=== PATIENT | female | born 1975 | race Caucasian/White ===

== ENCOUNTER 2020-06-04 17:39 | Emergency (ER) | payer OTHER, SELFPAY ==
[2020-06-04 17:50] VITALS: BP 133/71; PULSE 98; RESP 18; TEMP 37.2; O2SAT 99; BMI 32.3
--- NOTE | 2020-06-04 19:50 | ED_ITS ---
HPI - Skin/Abscess/Foreign Bdy General Chief complaint: Skin/Abscess/Foreign Body Stated complaint: cyst? Time Seen by Provider: 06/04/20 19:35 Source: patient Mode of arrival: ambulatory Limitations: no limitations History of Present Illness HPI narrative: Patient presents to ED for right axillary boil that is painful. Patient states Fonseca is hard and small. Patient denies any fever, chills, chest pain, breast swelling, nipple discharge, breast redness. Patient states she had similar boil on left axillary in the past that drain on its own Related Data Previous Rx's Medication Instructions Recorded cephalexin 500 mg PO QID 7 Days #28 cap 06/04/20 naproxen 500 mg PO BID PRN #20 tab 06/04/20 Allergies Allergy/AdvReac Type Severity Reaction Status Date / Time No Known Allergies Allergy Verified 06/04/20 17:54 Review of Systems Review of Systems: Yes all other systems are reviewed and are negative Constitutional: Constitutional: Reports as per HPI and Reports no additional constitutional complaints Eyes: Eyes: Reports as per HPI and Reports no additional eye complaints ENT: Reports system reviewed and no additional complaints, except as d ocumented and Reports as per HPI Cardiovascular: Cardiovascular: Reports as per HPI and Reports no additional cardiovascular complaints Respiratory: Respiratory: Reports as per HPI and Reports no additional respiratory complaints Gastrointestinal: Gastrointestinal: Reports as per HPI and Reports no additional gastrointestinal complaints Genitourinary: Genitourinary: Reports no additional female genitourinary complaints and Reports as per HPI Musculoskeletal: Musculoskeletal: Reports no additional musculoskeletal complaints and Reports as per HPI Comments: Right axillary boil Neurologic: Reports system reviewed and no additional complaints, except as documented and Reports as per HPI Psychiatric: Psychiatric: Reports no additional psychiatric complaints and Reports as per HPI [facility] Past Medical History Medical History Fibromyalgia Social History Social History Alcohol intake: never Smoked in Last 30 Days: No Use of substances other than those prescribed or required for medical reasons: No Advance Directives: No Physical Exam Vital Signs: Vital Signs: Last Vital Signs Temp 98.9 F 06/04/20 17:50 Pulse 98 06/04/20 17:50 Resp 18 06/04/20 17:50 BP 133/71 06/04/20 17:50 Pulse Ox 99 02/06/21 17:50 Body Mass Index 32.3 Const: General: cooperative, healthy appearing, comfortable, no acute distress, well developed, alert, awake and Physically active Orientation/cons ciousness: patient oriented x3 HENMT: Head: Yes normal to inspection, Yes No palpable skull fracture present, Yes normocephalic and Yes atraumatic Eyes: General: appearance normal, both eyes and all related structures Neck: Neck: Yes normal visual inspection, Yes full ROM, Yes no lymphadenopathy, Yes no meningeal signs, Yes trachea midline, Yes supple and No tender Chest: Chest palpation & inspection: normal inspection of the chest and normal palpation of entire chest wall Resp: Effort & Inspection: normal respiratory effort and able to speak in complete sentences Auscultation: clear to auscultation bilaterally Cardio: Jugular venous distension: no JVD Heart sounds: S1 normal heart sound present and S2 normal heart sound present GI: Inspection: Yes normal to inspection and No abdominal wall ecchymosis Palpation (GI): Soft to palpation, not firm, nontender, no guarding and not rigid : General: No CVA tenderness and Yes no CVA tenderness Back/Spine/Pelvis: Back: no CVA tenderness, No CVA tenderness and No back tenderness Skin: Other: Positive for right axillary boil that is hard, tender, and nonfluctuant. Abscess not ready to be drained General skin exam: no rashes or lesions noted Neuro: General: patient oriented x3, no meningeal signs and CN's II-XI intact bilaterally Cranial nerves: Yes CN's II-XII intact bilaterally Extrem: General: Yes normal to inspection and Yes full ROM Psych: Appearance: grossly normal, well kempt and not disheveled Course Course Course Narrative: Patient has early right axillary abscess. Reevaluation(s) Reevaluation #1: Patient's right axillary abscess not yet ready to be drained. Patient educated on warm compress 4 times a day on oil. Patient states she cannot take doxycycline due to stomach upset with nausea and vomiting. Patient will be discharged with Keflex only. Time: 19:55 MDM - Skin/Abscess/Foreign Bdy MDM Narrative Medical decision making narrative: Abscess Discharge Plan Discharge Clinical Impression: Abscess of skin or subcutaneous tissue Patient Disposition: Home, Self-Care Instructions: Abscess (ED) Additional Instructions: Return to the ED immediately for increased size of abscess, worsening redness, worsening pain, fever, chills, profuse opening and drainage, or any other c oncerning symptoms. Recommend warm compress 4 times a day for 15 minutes on oil Prescriptions: New cephalexin 500 mg capsule 500 mg PO QID 7 Days Qty: 28 RF: 0 naproxen 500 mg tablet 500 mg PO BID PRN (Reason: pain) Qty: 20 RF: 0 Interventions: ED Discharge Assessment Last Done: 06/04/20 20:21 Discharge Date/Time: 06/04/20 20:24 Print Language: Maltese
== END 2020-06-04 20:24 | disposition home or self-care (01) ==
PROVIDERS: Emergency Provider Internal Medicine
DX: L02.411 Cutaneous abscess of right axilla (principal); Z79.899 Other long term (current) drug therapy
CPT/HCPCS: 99283; 99284

== ENCOUNTER 2021-01-04 17:10 | Emergency (ER) | payer OTHER, SELFPAY ==
[2021-01-04 17:37] VITALS: BP 137/84; PULSE 93; RESP 18; TEMP 37; O2SAT 98; BMI 29.1
--- NOTE | 2021-01-04 19:20 | ED.CHESTPAIN ---
HPI - Chest Pain General Chief Complaint: Chest Pain Stated Complaint: Sore throat/Cough Time Seen by Provider: 01/04/21 19:20 Source: patient Mode of arrival: ambulatory Limitations: no limitations History of Present Illness HPI narrative: Patient post vaccinated with COVID 2 months ago complaining of nasal congestion sore throat for last 24 hours no fever no chills no significant cough or shortness of breath Related Data Previous Rx's Medication Instructions Recorded cephalexin 500 mg capsule 500 mg PO QID 7 Days #28 cap 06/04/20 naproxen 500 mg tablet 500 mg PO BID PRN #20 tab 06/04/20 Allergies Allergy/AdvReac Type Severity Reaction Status Date / Time No Known Allergies Allergy Verified 06/04/20 17:54 Review of Systems Review of Systems: Yes all other systems are reviewed and are negative [facility] Past Medical History Medical History Fibromyalgia Social History Social History Alcohol intake: never Advance Directives: No Advance Directives Information Provided: Yes Physical Exam Vital Signs: Vital Signs: Last Vital Signs Temp 97.8 F 01/04/21 21:12 Pulse 88 01/04/21 21:12 Resp 16 01/04/21 21:12 BP 141/94 H 01/04/21 21:12 Pulse Ox 100 01/04/21 21:12 Body Mass Index 29.1 Appearance: Alert. Oriented X3. No acute distress. ENT: Slight erythema of the posterior pharynx, postnasal drip Oral Mucosa moist Neck: Normal inspection. Neck supple. CVS: Normal heart rate and rhythm. Pulses normal. Respiratory: No respiratory distress. Equal air entry bilateral, no wheezing/rales/rhonchi Abdomen: Soft and nontender. Bowel sounds are present, no mass palpable, no CVA tenderness Skin: Skin warm and dry. Normal skin color. Normal skin turgor. Extremities: No lower extremity edema. No calf tenderness Neuro: Oriented X 3. MDM - Chest Pain Lab Data Attestation: I reviewed the patient's lab results. Labs: Lab Results 01/04/21 01/04/21 Range/Units 19:48 19:48 COVID-19 ([facility]) Negative (Negative) COVID-19 Clin Com See Note S. pyogenes GrpA DIEUDONNE Negative (Negative) Discharge Plan Discharge Clinical Impression: Upper respiratory infection Patient Disposition: Home, Self-Care Instructions: Upper Respiratory Infection (ED) Additional Instructions: rapid strep and COVID is negative Take Claritin for allergies Drink plenty of fluids Prescriptions: No Action cephalexin 500 mg capsule 500 mg PO QID 7 Days Qty: 28 RF: 0 naproxen 500 mg tablet 500 mg PO BID PRN (Reason: pain) Qty: 20 RF: 0 Interventions: ED Discharge Assessment Last Done: 01/04/21 21:26 Discharge Date/Time: 01/04/21 21:27
[2021-01-04 19:53] VITALS: BP 131/93; PULSE 86; RESP 16; TEMP 36.8; O2SAT 98
[2021-01-04 20:07] LABS: IDNOW Serial# 08D9AD1C; Strep A Nucleic Acid Negative (Negative)
[2021-01-04 20:16] LABS: COVID-19 Test Negative (Negative)
[2021-01-04 21:12] VITALS: BP 141/94; PULSE 88; RESP 16; TEMP 36.6; O2SAT 100
== END 2021-01-04 21:27 | disposition home or self-care (01) ==
PROVIDERS: Emergency Provider Internal Medicine; PCP Nurse Practitioner Family
DX: J06.9 Acute upper respiratory infection, unspecified (principal); R07.9 Chest pain, unspecified; Z79.899 Other long term (current) drug therapy; Z20.822 Contact with and (suspected) exposure to COVID-19
CPT/HCPCS: 36415; 87635; 87651; 99283; 99284

== ENCOUNTER 2021-06-20 23:17 | Emergency (ER) | payer OTHER, SELFPAY ==
--- NOTE | ~2021-06-20 | XR_ITS ---
EXAMINATION: XR CHEST CLINICAL INFORMATION: Chest pain COMPARISON: None TECHNIQUE: Frontal view of the chest was obtained. FINDINGS: The lungs are well expanded. There is no focal consolidation, edema, or effusion. No pneumothorax. The cardiomediastinal silhouette is within normal limits. No acute osseous abnormality. XR/XR chest 1V IMPRESSION: Clear lungs.
[2021-06-20 23:33] VITALS: BP 136/91; PULSE 102; RESP 20; TEMP 36.8; O2SAT 98; BMI 32.3
--- NOTE | 2021-06-20 23:36 | ECG_ITS ---
Test Reason : DIZZINESS Blood Pressure : / mmHG Vent. Rate : 103 BPM Atrial Rate : 103 BPM P-R Int : 128 ms QRS Dur : 076 ms QT Int : 356 ms P-R-T Axes : 056 042 047 degrees QTc Int : 466 ms Sinus tachycardia Otherwise normal ECG No previous ECGs available Referred By: Generic ED Physician Electronically Signed By:JORGE NICHOLS
[2021-06-20 23:52] LABS: Basophils Percent Auto 0.4 % (0-2); Eosinophils Absolute Auto 0.4 X10*3/uL (0.0-0.4); Eosinophils Percent Auto 4.8 % (0-4); Hematocrit 36.3 % (37.0-47.0); Imm Gran Abs Auto 0.02 X10*3/uL (0.00-0.03); Imm Gran Pct Auto 0.2 % (0.0-0.4); Lymphocytes Absolute Auto 3.2 X10*3/uL (1.2-4.9); Lymphocytes Percent Auto 35.3 % (20-40); MANUAL DIFF FLAG NO; Mean Corpuscular HGB Conc 33.1 g/dl (31.0-35.0); Mean Corpuscular Hemoglobin 28.4 pg (27.0-33.0); Mean Corpuscular Volume 85.8 fL (80.0-98.0); Monocytes Absolute Auto 0.7 X10*3/uL (0.1-1.2); Monocytes Percent Auto 7.3 % (2-11); Neutrophils Absolute Auto 4.7 x10*3/uL (2.0-8.3); Platelet Count 247 X10*3/uL (160-400); Red Blood Count 4.23 X10*6/uL (4.20-5.50); Red Cell Distribution Width 12.9 % (11.0-16.0)
[2021-06-21 00:11] LABS: COVID-19 Test Negative (Negative); IDNOW Serial# 55D5AD1C
[2021-06-21 00:12] LABS: Anion Gap 10 (12-20); Blood Urea Nitrogen 14 mg/dL (9-16); Calcium 8.9 mg/dL (8.4-10.2); Carbon Dioxide 25 mmol/L (22-29); Chloride 106 mmol/L (96-108); Creatinine Clr Calc Pharmacy 121.6; Estimated Glomerular Filt Rate > 60; Glucose Random 93 mg/dL (60-115); Potassium 3.9 mmol/L (3.3-5.1); Sodium 137 mmol/L (135-145)
[2021-06-21 00:19] LABS: Troponin-I High Sensitivity < 3.5 ng/L (<3.5-17.0)
[2021-06-21 00:54] VITALS: BP 127/79; PULSE 98; RESP 16; TEMP 36.8; O2SAT 100
--- NOTE | 2021-06-21 02:20 | ED_ITS ---
HPI - Chest Pain General Chief Complaint: Chest Pain Stated Complaint: dizziness, nausea Time Seen by Provider: 06/21/21 01:18 Source: patient Mode of arrival: ambulatory History of Present Illness HPI narrative: 46-year-old female presents with multiple medical complaints that she states has been ongoing for over a week and encompass feelings of lightheadedness and describes head pain that comes up over her head into the base the neck and on both sides of her jaw as. Patient states that when she feels lightheaded she also has mild nausea but otherwise denies shortness of breath but reports chest pain and no palpitations. She denies any recent travel, smoking history. Related Data Previous Rx's Medication Instructions Recorded cephalexin 500 mg capsule 500 mg PO QID 7 Days #28 cap 06/04/20 naproxen 500 mg tablet 500 mg PO BID PRN #20 tab 06/04/20 meclizine 12.5 mg tablet 12.5 mg PO TID PRN #7 tab 06/21/21 Allergies Allergy/AdvReac Type Severity Reaction Status Date / Time No Known Allergies Allergy Verified 06/04/20 17:54 Review of Systems Review of Systems: Pertinent positives and negatives as stated in HPI 10 point review of systems is otherwise negative. PMFSH Past Medical History Source: nursing notes reviewed Medical History Fibromyalgia Social History Social History Alcohol intake: never Advance Directives: No Advance Directives Information Provided: No Patient : No Physical Exam Vital Signs: Vital Signs: Last Vital Signs Temp 98.0 F 06/21/21 03:57 Pulse 81 06/21/21 03:57 Resp 16 06/21/21 03:57 BP 119/73 06/21/21 03:57 Pulse Ox 99 06/21/21 03:57 BMI result Body Mass Index 32.3 VITAL SIGNS: Reviewed. GENERAL: Well developed, well nourished, in no acute distress. HEAD: Normocephalic/atraumatic EYES: PERRLA, EOMI intact without pain, no nystagmus EARS: Ext canals without abnormality, TMs non-bulging and non-erythematous NOSE: Nares patent bilateral OROPHARYNX: no oral lesions noted, posterior pharynx clear and non-erythematous without noted tonsillar enlargement/erythema/exudates NECK: Supple, no adenopathy LUNGS: Normal breath sounds. No adventitious sounds or accessory muscle use. SpO2<100> CARDIOVASCULAR: Regular rate and rhythm without noted murmurs, no JVD or lower extremity edema. ABDOMEN: Soft, non-tender, non-distended with bowel sounds. SKIN: Inspection of the skin reveals no rashes NEUROLOGIC: Alert and oriented x 4. Strength and sensation to light touch were grossly intact x 4, no facial asymmetry, no pronator drift, cranial nerves 2-12 are grossly intact, no cerebellar deficits noted Course Course Course Narrative: This is a 46-year-old female with history of fibromyalgia and on review of all investigations there are no acute findings to better explain patient's symptoms other than possible transient lightheadedness that has not affected her ADLs. Patient does not report additional depression and anxiety history. There is no evidence of infection, anemia, metabolic derangements, there are no acute findings on EKG and no evidence to suggest UTI or he . Orthostatics are negative as well as COVID-19 testing. Patient was provided with a combination of Tylenol ibuprofen for headache and given a trial of 12.5 mg of meclizine for her lightheadedness/dizziness. ESR is within normal limits. There are no focal findings, low suspicion for intracranial pathology and possible headache related symptoms. Although patient does not carry a formal diagnosis of migraines she was strongly encouraged to follow-up with her primary care provider and to keep a headache log. On re-evaluation patient has had improvement of her symptoms will be discharged home in stable condition. MDM - Chest Pain Lab Data Result diagrams: 06/20/21 23:44 06/20/21 23:44 Labs: Lab Results 06/20/21 06/20/21 06/20/21 Range/Units 23:42 23:44 23:44 WBC 9.0 (4.8-10.8) X10*3/uL RBC 4.23 (4.20-5.50) X10*6/uL Hgb 12.0 (12.0-16.0) g/dl Hct 36.3 L (37.0-47.0) % MCV 85.8 (80.0-98.0) fL MCH 28.4 (27.0-33.0) pg MCHC 33.1 (31.0-35.0) g/dl RDW 12.9 (11.0-16.0) % Plt Count 247 (160-400) X10*3/uL MPV 10.0 (9.4-12.3) fL Immature Gran % (Auto) 0.2 (0.0-0.4) % Neut % (Auto) 52.0 (45-73) % Lymph % (Auto) 35.3 (20-40) % [place] % (Auto) 7.3 (2-11) % Eos % (Auto) 4.8 H (0-4) % Baso % (Auto) 0.4 (0-2) % Lymph # (Auto) 3.2 (1.2-4.9) X10*3/uL [place] # (Auto) 0.7 (0.1-1.2) X10*3/uL Eos # (Auto) 0.4 (0.0-0.4) X10*3/uL Baso # (Auto) 0.0 (0.0-0.2) X10*3/uL Abs Immat Gran (auto) 0.02 (0.00-0.03) X10*3/uL Absolute Neuts (auto) 4.7 (2.0-8.3) x10*3/uL Absolute Nucleated RBC 0.000 (0.0-0.012) X10*3/uL Nucleated RBC % (auto) 0.0 (0.0-0.2) /100WBC ESR (0-20) MM/HR Sodium 137 (135-145) mmol/L Potassium 3.9 (3.3-5.1) mmol/L Chloride 106 (96-108) mmol/L Carbon Dioxide 25 (22-29) mmol/L Anion Gap 10 L (12-20) BUN 14 (9-16) mg/dL Creatinine 0.67 (0.5-1.4) mg/dL Estim Creat Clear Calc 121.6 Estimated GFR > 60 Random Glucose 93 (60-115) mg/dL Calcium 8.9 (8.4-10.2) mg/dL Total Bilirubin 0.2 (0.0-1.0) mg/dL Direct Bilirubin < 0.2 (0.0-0.5) mg/dL AST 14 (5-31) U/L ALT 16 (0-31) U/L Alkaline Phosphatase 62 (39-117) U/L Troponin I High Sens (<3.5-17.0) ng/L Total Protein 6.9 (6.5-8.0) g/dL Albumin 4.0 (3.5-5.0) g/dL Urine Color Urine Appearance Urine pH (5.0-8.0) Ur Specific [place] (1.005-1.025) Urine Protein (NEG-TRACE) MG/DL Urine Glucose (UA) (NEG) MG/DL Urine Ketones (NEG) MG/DL Urine Blood (NEG) Urine Nitrite (NEG) Ur Leukocyte Esterase (NEG) Urine RBC (0) /HPF Urine WBC (0-4) /HPF Ur Squamous Epith Cells /LPF Urine Bacteria /LPF Urine Test (NEGATIVE) COVID-19 ([facility]) Negative (Negative) COVID-19 Clin Com See Note 06/20/21 06/20/21 06/21/21 Range/Units 23:44 23:44 03:24 WBC (4.8-10.8) X10*3/uL RBC (4.20-5.50) X10*6/uL Hgb (12.0-16.0) g/dl Hct (37.0-47.0) % MCV (80.0-98.0) fL MCH (27.0-33.0) pg MCHC (31.0-35.0) g/dl RDW (11.0-16.0) % Plt Count (160-400) X10*3/uL MPV (9.4-12.3) fL Immature Gran % (Auto) (0.0-0.4) % Neut % (Auto) (45-73) % Lymph % (Auto) (20-40) % [place] % (Auto) (2-11) % Eos % (Auto) (0-4) % Baso % (Auto) (0-2) % Lymph # (Auto) (1.2-4.9) X10*3/uL [place] # (Auto) (0.1-1.2) X10*3/uL Eos # (Auto) (0.0-0.4) X10*3/uL Baso # (Auto) (0.0-0.2) X10*3/uL Abs Immat Gran (auto) (0.00-0.03) X10*3/uL Absolute Neuts (auto) (2.0-8.3) x10*3/uL Absolute Nucleated RBC (0.0-0.012) X10*3/uL Nucleated RBC % (auto) (0.0-0.2) /100WBC ESR 7 (0-20) MM/HR Sodium (135-145) mmol/L Potassium (3.3-5.1) mmol/L Chloride (96-108) mmol/L Carbon Dioxide (22-29) mmol/L Anion Gap (12-20) BUN (9-16) mg/dL Creatinine (0.5-1.4) mg/dL Estim Creat Clear Calc Estimated GFR Random Glucose (60-115) mg/dL Calcium (8.4-10.2) mg/dL Total Bilirubin (0.0-1.0) mg/dL Direct Bilirubin (0.0-0.5) mg/dL AST (5-31) U/L ALT (0-31) U/L Alkaline Phosphatase (39-117) U/L Troponin I High Sens < 3.5 (<3.5-17.0) ng/L Total Protein (6.5-8.0) g/dL Albumin (3.5-5.0) g/dL Urine Color YELLOW Urine Appearance CLEAR Urine pH 6.0 (5.0-8.0) Ur Specific [place] 1.025 (1.005-1.025) Urine Protein NEG (NEG-TRACE) MG/DL Urine Glucose (UA) NEG (NEG) MG/DL Urine Ketones NEG (NEG) MG/DL Urine Blood 1+ H (NEG) Urine Nitrite NEG (NEG) Ur Leukocyte Esterase NEG (NEG) Urine RBC 1-4 (0) /HPF Urine WBC 1-4 (0-4) /HPF Ur Squamous Epith Cells 1+ /LPF Urine Bacteria 1+ /LPF Urine Test (NEGATIVE) COVID-19 ([facility]) (Negative) COVID-19 Clin Com 06/21/21 Range/Units 03:24 WBC (4.8-10.8) X10*3/uL RBC (4.20-5.50) X10*6/uL Hgb (12.0-16.0) g/dl Hct (37.0-47.0) % MCV (80.0-98.0) fL MCH (27.0-33.0) pg MCHC (31.0-35.0) g/dl RDW (11.0-16.0) % Plt Count (160-400) X10*3/uL MPV (9.4-12.3) fL Immature Gran % (Auto) (0.0-0.4) % Neut % (Auto) (45-73) % Lymph % (Auto) (20-40) % [place] % (Auto) (2-11) % Eos % (Auto) (0-4) % Baso % (Auto) (0-2) % Lymph # (Auto) (1.2-4.9) X10*3/uL [place] # (Auto) (0.1-1.2) X10*3/uL Eos # (Auto) (0.0-0.4) X10*3/uL Baso # (Auto) (0.0-0.2) X10*3/uL Abs Immat Gran (auto) (0.00-0.03) X10*3/uL Absolute Neuts (auto) (2.0-8.3) x10*3/uL Absolute Nucleated RBC (0.0-0.012) X10*3/uL Nucleated RBC % (auto) (0.0-0.2) /100WBC ESR (0-20) MM/HR Sodium (135-145) mmol/L Potassium (3.3-5.1) mmol/L Chloride (96-108) mmol/L Carbon Dioxide (22-29) mmol/L Anion Gap (12-20) BUN (9-16) mg/dL Creatinine (0.5-1.4) mg/dL Estim Creat Clear Calc Estimated GFR Random Glucose (60-115) mg/dL Calcium (8.4-10.2) mg/dL Total Bilirubin (0.0-1.0) mg/dL Direct Bilirubin (0.0-0.5) mg/dL AST (5-31) U/L ALT (0-31) U/L Alkaline Phosphatase (39-117) U/L Troponin I High Sens (<3.5-17.0) ng/L Total Protein (6.5-8.0) g/dL Albumin (3.5-5.0) g/dL Urine Color Urine Appearance Urine pH (5.0-8.0) Ur Specific [place] (1.005-1.025) Urine Protein (NEG-TRACE) MG/DL Urine Glucose (UA) (NEG) MG/DL Urine Ketones (NEG) MG/DL Urine Blood (NEG) Urine Nitrite (NEG) Ur Leukocyte Esterase (NEG) Urine RBC (0) /HPF Urine WBC (0-4) /HPF Ur Squamous Epith Cells /LPF Urine Bacteria /LPF Urine Test NEGATIVE (NEGATIVE) COVID-19 ([facility]) (Negative) COVID-19 Clin Com ECG Data ECG #1: Attestation: I personally reviewed and interpreted this ECG as follows: Prior ECG tracings: not available for review Interpretation: Sinus tachycardia, HR-103, no STEMI, NM/QRS/QTC are within normal limits. Discharge Plan Discharge Clinical Impression: Headache, Vertigo Patient Disposition: Home, Self-Care Instructions: Vertigo (ED), Lightheadedness (ED), General Headache (ED) Additional Instructions: 1. Recommend that you follow-up with your primary care provider for further re-e valuation outpatient management. This may be associated with headaches and it would be beneficial for you to keep a headache journal to identify activities or triggers of your headaches. 2. You have been started on a trial of meclizine which can help with dizziness and feelings of vertigo. 3. Tylenol 1000 mg, orally, every 6 hours as needed for pain control. Do not exceed 4000 mg within 24 hours. 4. Ibuprofen 400 mg, orally with milk or food, every 6 hours as needed for pain control. Return to the ER for worsening symptoms. Prescriptions: New meclizine 12.5 mg tablet 12.5 mg PO TID PRN (Reason: dizziness) Qty: 7 0RF No Action cephalexin 500 mg capsule 500 mg PO QID 7 Days Qty: 28 0RF naproxen 500 mg tablet 500 mg PO BID PRN (Reason: pain) Qty: 20 0RF
[2021-06-21 02:28] VITALS: BP 125/81; PULSE 80
[2021-06-21 02:29] VITALS: BP 128/84; BP 131/88; PULSE 82; PULSE 87
[2021-06-21 02:37] LABS: Alanine Aminotransferase 16 U/L (0-31); Alkaline Phosphatase 62 U/L (39-117); Aspartate Amino Transferase 14 U/L (5-31); Bilirubin Direct < 0.2 mg/dL (0.0-0.5); Bilirubin Total 0.2 mg/dL (0.0-1.0); Total Protein 6.9 g/dL (6.5-8.0)
[2021-06-21] MEDS: Acetaminophen 325 MG TABLET 975 MG PO (02:40)
[2021-06-21] MEDS: Ibuprofen 400 MG TABLET PO (02:43)
[2021-06-21 03:07] LABS: Erythrocyte Sedimentation Rate 7 MM/HR (0-20)
[2021-06-21 03:33] LABS: Appearance Urine CLEAR; Color Urine YELLOW; Glucose Urine UA NEG (NEG); Leukocyte Esterase Urine NEG (NEG); Nitrite Urine NEG (NEG); Specific Gravity - Urine 1.025 (1.005-1.025); UACC Culture Trigger NO; Urine Blood 1+ (NEG); Urine Ketones NEG (NEG); Urine Protein NEG (NEG-TRACE)
[2021-06-21 03:37] LABS: UPreg QC Valid YES; Urine Pregnancy NEGATIVE (NEGATIVE)
[2021-06-21 03:39] LABS: Bacteria Urine 1+ /LPF; Squamous Epithelial Cell Urine 1+ /LPF
[2021-06-21 03:57] VITALS: BP 119/73; PULSE 81; RESP 16; TEMP 36.7; O2SAT 99
[2021-06-21] MEDS: Meclizine HCl 12.5 MG TABLET PO (04:04)
== END 2021-06-21 05:14 | disposition home or self-care (01) ==
PROVIDERS: Emergency Provider Student in an Organized Health Care Education/Training Program
DX: R42 Dizziness and giddiness (principal); R51.9 Headache, unspecified; Z20.822 Contact with and (suspected) exposure to COVID-19
CPT/HCPCS: 36415; 71045; 80048; 80076; 81001; 81025; 84484; 85025; 85652; 87635; 93005; 99284

== ENCOUNTER 2022-08-18 17:34 | Emergency (ER) | payer OTHER, SELFPAY ==
[2022-08-18 17:52] VITALS: BP 125/84; PULSE 99; RESP 18; TEMP 36.3; O2SAT 97; BMI 31.1
--- OUTSIDE RECORDS SUMMARY | 2022-08-18 18:25 | XMS_ITS | Continuity of Care Document ---
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 Name Role Phone Douglas SALINAS, Gin Zaragoza Primary Care Physician [phone] Encounter [facility] Date(s): 06/19/21 - 07/19/21 [facility] [address], [place] [address] Allergies, Adverse Reactions, Alerts No Known Medication Allergies Substance Reaction Severity Status Fresh Fruit and Vegetables A ctive Immunizations Given and Recorded Vaccine Date Status Refusal Reason influenza virus vaccine, inactivated 05/23/21 You rded influenza virus vaccine, inactivated 03/08/20 You rded influenza virus vaccine, inactivated 02/16/19 Give n influenza virus vaccine, inactivated 02/26/18 You rded influenza virus vaccine, inactivated 1 01/27/18 Gi suri influenza virus vaccine, inactivated 06/20/17 You rded influenza virus vaccine, inactivated 03/01/15 You rded influenza virus vaccine, inactivated 2 03/18/13 Gi suri influenza virus vaccine, inactivated 3 12/27/11 Gi suri influenza virus vaccine, inactivated 4 12/28/10 Gi suri influenza virus vaccine, inactivated 01/19/10 You rded SARS-CoV-2 (COVID-19) mRNA BNT-162b2 vac 05/23/21 Recorded SARS-CoV-2 (COVID-19) mRNA BNT-162b2 vac 10/28/20 Recorded SARS-CoV-2 (COVID-19) mRNA BNT-162b2 vac 10/05/20 Recorded tetanus/diphtheria/pertussis, acel(Tdap) 03/21/15 Given Influenza Virus Vaccine (oldterm) 5 02/11/07 Given 1Admin Note: at outside clinic -[facility] - per patient 2Result Comment: [03/18/2013] flulaval 3Admin Note: vis given dated 10/29/11 4Admin Note: Pt states rec'd in December at [facility] 5Admin Note: VIS given Medications Blood Pressure Monitor See Instructions, # 1 each, Maintenance, Dx: elevated BP reading without diagnosis of HTN, lightheadedness Check BP once daily, 07/01/20 8:53:00 EST, Supply Start Date: 07/01/20 Status: Ordered busPIRone 15 mg oral tablet 1 tablet = 15 mg, By Mouth, 3 times a day, # 90 tablet, 5 Refills, Maintenance, 11/01/20 14:39:00 EDT, [facility]/pharmacy #[id number], note dose change, 167, cm, 06/16/20 14:00:00 EST, Height, 89.8, kg, 07/01/2017:35:00 EST, Dry Weight Start Date: 11/01/20 Status: Ordered diclofenac 1% topical gel See Instructions, APPLY TO AFFECTED AREA 4 TIMES A DAY, # 100 Gm, 0 Refills, [facility] STORE [id number], 25, APPLY TO AFFECTED AREA 4 TIMES A DAY, 167, cm, 05/10/21 14:43:00 EST, Height, 89.8, kg, 07/02/19 18:35:00 EST, Dry Weight Start Date: 05/28/21 Status: Ordered TENS machine TENS machine, See Instructions, # 1 each, Refills 0, Tot. Refills 0, Maintenance, Dx: Fibromyalgia Use daily for muscle pains and cramps, 06/12/21 14:11:00 EST, Supply Start Date: 06/12/21 Status: Ordered tiZANidine 2 mg oral tablet 2 mg, 1, tablet, By Mouth, 2 times a day, FOR MUSCLE PAIN AND SPASM, # 14 tablet, Refills 0, Tot. Refills 0, Maintenance, 06/12/21 14:13:00 EST, Route to Pharmacy Electronically, [facility]/pharmacy #[id number], Partial fill upon patient request if the prescriptio... Start Date: 06/12/21 Stop Date: 06/19/21 Status: Ordered venlafaxine 100 mg oral tablet 1 tablet = 100 mg, By Mouth, 2 times a day, # 60 tablet, 5 Refills, Maintenance, 06/12/21 13:55:00 EST, Tablet, [facility]/pharmacy #[id number], Partial fill upon patient request if the prescription is for a schedule II opioid drug., 167, cm, 06/12/21 13:38:00 EST... 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 Sex
--- OUTSIDE RECORDS SUMMARY | 2022-08-18 18:25 | XMS_ITS | Continuity of Care Document ---
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 Name Role Phone Douglas SALINAS, Gin Zaragoza Primary Care Physician [phone] Encounter [facility] Date(s): 06/22/21 - 07/26/21 [facility] [address] [place] [id number] Attending Physician: Douglas SALINAS, Gin Zaragoza Admitting Physician: Douglas SALINAS, Gin Zaragoza Allergies, Adverse Reactions, Alerts No Known Medication [...] 02/11/07 Given 1Admin Note: at outside clinic -[facility] - per patient 2Result Comment: [03/18/2013] flulaval 3Admin Note: vis given dated 10/29/11 4Admin Note: Pt states rec'd in December at [facility] 5Admin Note: VIS given Medications Blood Pressure Monitor See Instructions, # 1 each, Maintenance, Dx: elevated BP reading without diagnosis of HTN, lightheadedness Check BP once daily, 07/01/20 8:53:00 EST, Supply Start Date: 07/01/20 Status: Ordered busPIRone 15 mg oral tablet 1 tablet = 15 mg, By Mouth, 3 times a day, # 90 tablet, 5 Refills, Maintenance, 11/01/20 14:39:00 EDT, [facility]/pharmacy #[id number], note dose change, 167, cm, 06/16/20 14:00:00 EST, Height, 89.8, kg, 07/01/2017:35:00 EST, Dry Weight Start Date: 11/01/20 Status: Ordered diclofenac 1% topical gel See Instructions, APPLY TO AFFECTED AREA 4 TIMES A DAY, # 100 Gm, 0 Refills, [facility] ST[id number], 25, APPLY TO AFFECTED AREA 4 TIMES [...] 06/12/21 14:13:00 EST, Route to Pharmacy Electronically, [facility]/pharmacy #[id number], Partial fill upon patient request if the prescriptio... Start Date: 06/12/21 Stop Date: 06/19/21 Status: Ordered venlafaxine 100 mg oral tablet 1 tablet = 100 mg, By Mouth, 2 times a day, # 60 tablet, 5 Refills, Maintenance, 06/12/21 13:55:00 EST, Tablet, [facility]/pharmacy #[id number], Partial fill upon patient request if the prescription is for a schedule II opioid drug., 167, cm, 06/12/21 13:38:00 EST... Start Date: 06/12/21 Status: Ordered Problem List Condition Effective Dates Status Health Status Inform ant Allergy disorder(Confirmed) Active Anal skin tag(Confirmed) Active Anxiety and depression(Confirmed) Active Constipation(Confirmed) Active [...]
--- OUTSIDE RECORDS SUMMARY | 2022-08-18 18:25 | XMS_ITS | Continuity of Care Document ---
Author Name Unknown Organization [facility] ter Address [address] [place] [address]- Care Team Providers Care Manuscript Reader Name Role Phone Douglas SALINAS, Gin Zaragoza Primary Care Physician [phone] Encounter [facility] R [id number] Date(s): 01/01/22 - 02/10/[address] [address]- Attending Physician: Douglas SALINAS, Gin Zaragoza Admitting Physician: Douglas SALINAS, Gin Zaragoza Referring Physician: Douglas SALINAS, Gin Zaragoza Allergies, Adverse [...] mRNA BNT-162b2 vac 10/05/20 Recorded tetanus/diphtheria/pertussis, acel(Tdap) 11/23/15 Given Influenza Virus Vaccine (oldterm) 5 02/11/07 Given 1Admin Note: at outside clinic -[facility] - per patient 2Result Comment: [03/18/2013] flulaval 3Admin Note: vis given dated 10/29/11 4Admin Note: Pt states rec'd in December at [facility] 5Admin Note: VIS given Medications Blood Pressure Monitor See Instructions, # 1 each, Maintenance, Dx: elevated BP reading without diagnosis of HTN, lightheadedness Check BP once daily, 07/01/20 8:53:00 EST, Supply Start Date: 07/01/20 Status: Ordered busPIRone 15 mg oral tablet 1 tablet = 15 mg, By Mouth, 3 times a day, # 90 tablet, 5 Refills, Maintenance, 09/06/21 20:40:00 EDT, [facility]/pharmacy #[id number], note dose change, 167, cm, 07/24/21 15:14:00 EDT, Height Start Date: 09/06/21 Status: Ordered clindamycin 1% topical solution 1 application, Topically, 2 times a day, # 60 mL, 0 Refills, Maintenance, 11/23/21 16:41:00 EDT, Solution, [id number], Partial fill upon patient request if the prescription is for a schedule II opioid drug., 1 application Topically 2 times a d... Start Date: 11/23/21 Status: Ordered diclofenac 1% topical gel See Instructions, APPLY TO AFFECTED AREA 4 TIMES A DAY, # 100 Gm, 0 Refills, [id number], 25, APPLY TO AFFECTED AREA 4 TIMES A DAY, 167, cm, 05/10/21 14:43:00 EST, Height, 89.8, kg, 07/02/19 18:35:00 EST, Dry Weight Start Date: 05/28/21 Status: Ordered ibuprofen 800 mg oral tablet See Instructions, TAKE 1 TABLET BY MOUTH 3 TIMES A DAY TRY TO LIMIT TO 6 TABS PER WEEK, # 90 tablet, Refills 1, Instructions Replace Required Details, Route to Pharmacy Electronically, [id number], 167, cm, 09/18/21 9:00:00 EDT, Height Start Date: 10/04/21 Status: Ordered meclizine 12.5 mg oral tablet 1 tablet = 12.5 mg, By Mouth, 3 times a day, TAKE 1 TABLET BY MOUTH THREE TIMES A DAY NEEDED FORDIZZINESS, # 40 tablet, 1 Refills, 08/24/21 14:23:00 EDT, [facility]/pharmacy #[id number], 167, cm, 07/24/21 15:14:00 EDT, Height Start Date: 08/24/21 Status: Ordered TENS machine TENS machine, See [...] 06/12/21 14:13:00 EST, Route to Pharmacy Electronically, [facility]/pharmacy #[id number], Partial fill upon patient request if the prescriptio... Start Date: 06/12/21 Stop Date: 06/19/21 Status: Ordered venlafaxine 100 mg oral tablet 1 tablet, By Mouth, 2 times a day, # 60 tablet, 2 Refills, [facility] STORE [id number], 167, cm, 11/23/21 16:00:00 EDT, Height Start Date: 12/04/21 Status: Ordered Problem List Condition Confirmation Course Effective Dates Status [facility] Informant Allergy disorder Confirmed Active Anal skin tag Confirmed Active Anxiety and depression Confirmed Active Constipation Confirmed Active Fibromyalgia Confirmed Active Fracture of orbital floor, blow-out, closed 1 Confirmed Active Hemorrhoids Confirmed Active 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 Sex Patient Care team information Personnel Name: Gin Cole NP Address: Address: [address] [place] [address]
--- OUTSIDE RECORDS SUMMARY | 2022-08-18 18:25 | XMS_ITS | Continuity of Care Document ---
Author Name Unknown Organization [facility] Address Unknown Care Team Providers Care Post Graduate Intern Name Role Phone Douglas SALINAS, Gin Zaragoza Primary Care Physician Encounter [facility] Date(s): 07/24/21 - 07/31/21 [facility] Encounter Diagnosis Anal skin tag(Discharge Diagnosis) - 07/24/21 Attending Physician: Yanet Estevez MD Referring Physician: Gin Cole NP Allergies, Adverse Reactions, Alerts No Known Medication [...] influenza virus vaccine, inactivated 2 03/18/13 Gi suir influenza virus vaccine, inactivated 3 12/27/11 Gi suri influenza virus vaccine, inactivated 4 12/28/10 Gi suri influenza virus vaccine, inactivated 01/19/10 You rded SARS-CoV-2 (COVID-19) mRNA BNT-162b2 vac 05/23/21 Recorded SARS-CoV-2 (COVID-19) mRNA BNT-162b2 vac 10/28/20 Recorded SARS-CoV-2 (COVID-19) mRNA BNT-162b2 vac 10/05/20 Recorded tetanus/diphtheria/pertussis, acel(Tdap) 03/21/15 Given Influenza Virus Vaccine (oldterm) 5 02/11/07 Given 1Admin Note: at outside clinic -[facility] - per patient 2Result Comment: [03/18/2013] flulaval 3Admin Note: vis given dated 10/29/11 4Admin Note: Pt states rec'd in December at [facility] 5Admin Note: VIS given Medications Blood Pressure Monitor See Instructions, # 1 each, Maintenance, Dx: elevated BP reading without diagnosis of HTN, lightheadedness Check BP once daily, 07/01/20 8:53:00 EST, Supply Start Date: 07/01/20 Status: Ordered busPIRone 15 mg oral tablet 1 tablet = 15 mg, By Mouth, 3 times a day, # 90 tablet, 5 Refills, Maintenance, 11/01/20 14:39:00 EDT, [facility]/pharmacy #[id number], note dose change, 167, cm, 06/16/20 14:00:00 EST, Height, 89.8, kg, 07/01/2017:35:00 EST, Dry Weight Start Date: 11/01/20 Status: Ordered diclofenac 1% topical gel See Instructions, APPLY TO AFFECTED AREA 4 TIMES A DAY, # 100 Gm, 0 Refills, [facility] STORE [id number], 25, APPLY TO AFFECTED AREA 4 TIMES [...] 06/12/21 14:13:00 EST, Route to Pharmacy Electronically, [facility]/pharmacy #[id number], Partial fill upon patient request if the prescriptio... Start Date: 06/12/21 Stop Date: 06/19/21 Status: Ordered venlafaxine 100 mg oral tablet 1 tablet = 100 mg, By Mouth, 2 times a day, # 60 tablet, 5 Refills, Maintenance, 06/12/21 13:55:00 EST, Tablet, [facility]/pharmacy #[id number], Partial fill upon patient request if the [...] Active Vitamin D deficiency(Confirmed) Active 1Right side Diagnosis Diagnosis Type Effective Dates Health Status Cl inical Service Informant Anal skin tag Discharge Diagnosis 07/24/21 Vital Signs Most recent to oldest [Reference Range]: 1 Height 167 cm (07/24/21 3:14 PM) Weight 92.2 kg (07/24/21 3:14 PM) Pulse Rate [55-90 bpm] 120 bpm *H* (07/24/21 3:14 PM) Body Mass Index [18.5-24.99] 33.06 *>HHI* (07/24/21 3:14 PM) Blood Pressure [90-138/55-84 mm Hg] 127/ 71mm Hg (07/24/21 3:14 PM) Temperature [96.8-100.4 DegF] 96.0 DegF *L* (07/24/21 3:14 PM) Blood pressure sites Arm, right (07/24/21 3:14 PM) Temperature Route Temporal (07/24/21 3:14 PM) Social History Social History Type Response Tobacco Other: PT STATES BASSAM T 2015. Sex
--- OUTSIDE RECORDS SUMMARY | 2022-08-18 18:25 | XMS_ITS | Continuity of Care Document ---
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 Name Role Phone Douglas SALINAS, Gin Zaragoza Primary Care Physician Encounter [facility] Date(s): 07/29/20 - 08/28/20 [facility] [address] [place] [address]- Attending Physician: Admtr, Ar8 Allergies, Adverse Reactions, Alerts No Known Medication Allergies Substance Reaction Severity Status Fresh Fruit and Vegetables A ctive Immunizations Given and Recorded Vaccine Date Status Refusal Reason influenza virus vaccine, inactivated 02/16/19 Give n influenza virus vaccine, inactivated 1 01/27/18 Gi suri influenza virus vaccine, inactivated 2 03/18/13 Gi suri influenza virus vaccine, inactivated 3 12/27/11 Gi suri influenza virus vaccine, inactivated 4 12/28/10 Gi suri tetanus/diphtheria/pertussis, acel(Tdap) 03/21/15 Given Influenza Virus Vaccine (oldterm) 5 02/11/07 Given 1Admin Note: at outside clinic -[facility] - per patient 2Result Comment: [03/18/2013] flulaval 3Admin Note: vis given dated 10/29/11 4Admin Note: Pt states rec'd in December at [facility] 5Admin Note: VIS given Medications Blood Pressure Monitor See Instructions, # 1 each, Maintenance, Dx: elevated BP reading without diagnosis of HTN, lightheadedness Check BP once daily, 07/01/20 8:53:00 EST, Supply Start Date: 07/01/20 Status: Ordered busPIRone 15 mg oral tablet 1 tablet = 15 mg, By Mouth, 3 times a day, # 90 tablet, 5 Refills, Maintenance, 10/23/19 14:34:00 EDT, [facility]/pharmacy #[id number], note dose change, 167, cm, 10/23/19 13:35:00 EDT, Height, 89.8, kg, 07/01/2017:35:00 EST, Dry Weight Start Date: 10/23/19 Status: Ordered capsaicin 0.025% topical cream 1 application, Topically, 2 times a day, # 45 Gm, 5 Refills, Maintenance, 10/23/19 14:12:00 EDT, Cream, [facility]/pharmacy #[id number], 1 application Topically 2 times a day, 167, cm, 10/23/19 13:35:00 EDT, Height, 89.8, kg, 07/02/19 18:35:00 EST, Dry Weight Start Date: 10/23/19 Status: Ordered clindamycin 1% topical solution 1 application, Topically, 2 times a day, for axillary, # 60 mL, 5 Refills, Maintenance, 06/16/20 14:36:00 EST, Solution, [facility]/pharmacy #[id number], Partial fill upon patient request if the prescription is for a schedule II opioid drug., 1 application Topical... Start Date: 06/16/20 Stop Date: 09/08/20 Status: Ordered ibuprofen 800 mg oral tablet 800 mg, 1, tablet, By Mouth, 3 times a day, try to limit to 6 tabs per week, # 90 tablet, Refills 0, Tot. Refills 0, Maintenance, 06/13/20 15:13:00 EST, Route to Pharmacy Electronically, [facility]/pharmacy#[id number], 167, cm, 10/23/19 13:35:00 EDT, Height, 89.8... Start Date: 06/13/20 Status: Ordered Lac-Hydrin 12% cream 1 application, Topically, 2 times a day, # 385 Gm, 11 Refills, Maintenance, 06/09/19 9:18:00 EST, Cream, [facility]/pharmacy #[id number], 1 application Topically 2 times a day, 167, cm, 04/16/19 15:34:00 EST, Height Start Date: 06/09/19 Status: Ordered omeprazole 20 mg oral enteric coated capsule 1 capsule = 20 mg, By Mouth, 2 times a day, # 60 capsule, 0 Refills, Maintenance, 10/23/19 14:17:00EDT, [facility]/pharmacy #[id number], 167, cm, 10/23/19 13:35:00 EDT, Height, 89.8, kg, 07/02/19 18:35:00 EST, Dry Weight Start Date: 10/23/19 Status: Ordered sling for R shoulder sling for R shoulder, See Instructions, # 1 each, Refills 0, Tot. Refills 0, Maintenance, tear of paraspinous muscle greater tuberosity nondisplaced fx Greater tuberosity of humerus fracture (S42.253A), 12/28/19 16:17:00 EDT, Supply Start Date: 12/28/19 Status: Ordered tiZANidine 2 mg oral tablet 2 mg, 1, tablet, By Mouth, 2 times a day, for muscle pains, # 60 tablet, Refills 0, Tot. Refills 0,Maintenance, 11/27/19 13:14:00 EDT, Route to Pharmacy Electronically, [facility]/pharmacy #[id number], 167, cm, 10/23/19 13:35:00 EDT, Height, 89.8, kg, 07/02/19 18... Start Date: 11/27/19 Status: Ordered topiramate 50 mg oral tablet 1 tablet = 50 mg, By Mouth, Daily at bedtime, # 30 tablet, 2 Refills, Maintenance, 10/12/19 10:13:00 EDT, [facility]/pharmacy #[id number], dose increase 10/12/19, 167, cm, 07/02/19 18:35:00 EST, Height, 89.8, kg, 07/02/19 18:35:00 EST, Dry Weight Start Date: 10/12/19 Status: Ordered Tylenol Extra Strength 500 mg oral tablet 2 tablet = 1,000 mg, By Mouth, 3 times a day, PRN for pain, not to exceed 3000 mg/day, # 100 tablet, 2 Refills, Maintenance, 11/05/19 14:33:00 EDT, Tablet, [facility]/pharmacy #[id number], 167, cm, 10/23/19 13:35:00 EDT, Height, 89.8, kg, 07/02/19 18:35:00 EST, DrEric.. Start Date: 11/05/19 Status: Ordered venlafaxine 100 mg oral tablet 1 tablet = 100 mg, By Mouth, 2 times a day, # 60 tablet, 5 Refills, Maintenance, 06/14/20 11:04:00 EST, Tablet, [facility]/pharmacy #[id number], Partial fill upon patient request if the prescription is for a schedule II opioid drug., 167, cm, 10/23/19 13:35:00 EDT... Start Date: 06/14/20 Status: Ordered venlafaxine 100 mg oral tablet TAKE 1 TABLET BY MOUTH TWICE A DAY Start Date: 11/27/19 Status: Ordered Vitamin D3 2000 intl units oral capsule 1 capsule = 2,000 International_Units, By Mouth, Daily, # 30 capsule, 5 Refills, Maintenance, 09/17/19 14:31:00 EDT, [facility]/pharmacy #[id number], 167, cm, 07/02/19 18:35:00 EST, Height, 89.8, kg, 07/02/19 18:35:00 EST, Dry Weight Start Date: 09/17/19 Status: Ordered Problem List Condition Effective Dates Status Health Status Inform ant Allergy disorder(Confirmed) Active Anxiety and depression(Confirmed) Active Constipation(Confirmed) Active Fibromyalgia(Confirmed) Active Fracture of orbital floor, b low-out, closed(Confirmed) 1 Active Hemorrhoids(Confirmed) Active Insomnia disorder related to another mental disorder(Confirmed) Active OREN (obstructive sleep apnea)(Confirmed) 05/2016 Active Vitamin D deficiency(Confirmed) Active 1Right side Social History Social History Type Response Tobacco Other: PT STATES BASSAM T 2015. Sex
--- OUTSIDE RECORDS SUMMARY | 2022-08-18 18:25 | XMS_ITS | Continuity of Care Document ---
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 Name Role Phone Douglas SALINAS, Gin Zaragoza Primary Care Physician Encounter [facility] Date(s): 02/02/20 - 03/03/20 [facility] [address] [place] [id number]- Allergies, Adverse Reactions, Alerts No Known Medication [...] 02/11/07 Given [facility] 2Result Comment: [03/18/2013] flulaval 3Admin Note: vis given dated 10/29/11 4Admin Note: Pt states rec'd in December at [facility] 5Admin Note: VIS given Medications busPIRone 15 mg oral tablet 1 tablet = 15 mg, By Mouth, 3 times a day, # 90 tablet, 5 Refills, Maintenance, 10/23/19 14:34:00 EDT, [facility]/pharmacy #[id number], note dose change, 167, cm, 10/23/19 13:35:00 EDT, Height, 89.8, kg, 07/01/2017:35:00 EST, Dry Weight Start Date: 10/23/19 Status: Ordered capsaicin 0.025% topical cream 1 application, Topically, 2 times a day, # 45 Gm, 5 Refills, Maintenance, 10/23/19 14:12:00 EDT, Cream, [facility]/pharmacy #[id number], 1 application Topically 2 times a day, 167, cm, 10/23/19 13:35:00 EDT, Height, 89.8, kg, 07/02/19 18:35:00 EST, Dry Weight Start Date: 10/23/19 Status: Ordered ibuprofen 800 mg oral tablet 800 mg, 1, tablet, By Mouth, 3 times a day, try to limit to 6 tabs per week, # 90 tablet, Refills 1, Tot. Refills 1, Maintenance, 10/23/19 14:15:00 EDT, Route to Pharmacy Electronically, [facility]/pharmacy#[id number], 167, cm, 10/23/19 13:35:00 EDT, Height, 89.8... Start Date: 10/23/19 Status: Ordered Lac-Hydrin 12% cream 1 application, Topically, 2 times a day, # 385 Gm, 11 Refills, Maintenance, 06/09/19 9:18:00 EST, Cream, [facility]/pharmacy #[id number], 1 application Topically 2 times a day, 167, cm, 04/16/19 15:34:00 EST, Height Start Date: 06/09/19 Status: Ordered omeprazole 20 mg oral enteric coated capsule 1 capsule = 20 mg, By Mouth, 2 times a day, # 60 capsule, 0 Refills, Maintenance, 10/23/19 14:17:00EDT, [facility]/pharmacy #[id number], 167, cm, 10/23/19 13:35:00 EDT, Height, [...] 11/27/19 13:14:00 EDT, [id number], cm, 10/23/19 13:35:00 EDT, Height, 89.8, kg, 07/02/19 18... Start Date: 11/27/19 Status: Ordered topiramate 50 mg oral tablet 1 tablet = 50 mg, By Mouth, Daily at bedtime, # 30 tablet, 2 Refills, Maintenance, 10/12/19 10:13:00 EDT, [facility]/pharmacy #[id number], dose increase 10/12/19, 167, cm, 07/02/19 18:35:00 EST, Height, 89.8, kg, 07/02/19 18:35:00 EST, Dry Weight Start Date: 10/12/19 Status: Ordered Tylenol Extra Strength 500 mg oral tablet 2 tablet = 1,000 mg, By Mouth, 3 times a day, PRN for pain, not to exceed 3000 mg/day, # 100 tablet, 2 Refills, Maintenance, 11/05/19 14:33:00 EDT, Tablet, [facility]/pharmacy #[id number], 167, cm, 10/23/19 13:35:00 EDT, Height, 89.8, kg, 07/02/19 18:35:00 EST, Dr... Start Date: 11/05/19 Status: Ordered venlafaxine 100 mg oral tablet TAKE 1 TABLET BY MOUTH TWICE A DAY Start Date: 11/27/19 Status: Ordered Vitamin D3 2000 intl units oral capsule 1 capsule = 2,000 International_Units, By Mouth, Daily, # 30 capsule, 5 Refills, Maintenance, 09/17/19 14:31:00 EDT, [facility]/pharmacy #[id number], 167, cm, 07/02/19 18:35:00 EST, Height, [...]
--- OUTSIDE RECORDS SUMMARY | 2022-08-18 18:25 | XMS_ITS | Continuity of Care Document ---
Author Name Unknown Organization [facility] Address [address] [place] [address]- Care Team Providers Care Consulting Analyst Name Role Phone Douglas SALINAS, Gin Zaragoza Primary Care Physician Encounter [facility] Date(s): 09/17/19 - 09/24/19 [facility] [address] [place] [address]- [facility] Encounter Diagnosis Fibromyalgia(Discharge Diagnosis) - 09/17/19 Anxiety and depression(Discharge Diagnosis) - 09/17/19 Attending Physician: Douglas SALINAS, Gin Zaragoza Allergies, Adverse [...] 02/11/07 Given 1Admin Note: at outside clinic -[facility] - per patient 2Result Comment: [03/18/2013] flulaval 3Admin Note: vis given dated 10/29/11 4Admin Note: Pt states rec'd in December at [facility] 5Admin Note: VIS given Medications busPIRone 15 mg oral tablet 1 tablet = 15 mg, By Mouth, 3 times a day, # 90 tablet, 5 Refills, Maintenance, 03/27/19 8:49:38 EST, note dose change Start Date: 03/27/19 Status: Ordered capsaicin 0.025% topical cream 1 application, Topically, 2 times a day, # 45 Gm, 5 Refills, Maintenance, 06/09/19 9:17:00 EST, Cream, [facility]/pharmacy #[id number], 1 application Topically 2 times a day, 167, cm, 04/16/19 15:34:00 EST, Height Start Date: 06/09/19 Status: Ordered Lac-Hydrin 12% cream 1 application, Topically, 2 times a day, # 385 Gm, 11 Refills, Maintenance, 06/09/19 9:18:00 EST, Cream, [facility]/pharmacy #[id number], 1 application Topically 2 times a day, 167, cm, 04/16/19 15:34:00 EST, Height Start Date: 06/09/19 Status: Ordered promethazine 25 mg oral tablet 1 tablet = 25 mg, By Mouth, Every 6 hours, PRN as needed for nausea/vomiting, # 60 tablet, 1 Refills, Maintenance, 03/05/19 18:32:40 EST Start Date: 03/05/19 Status: Ordered topiramate 50 mg oral tablet 1 tablet = 50 mg, By Mouth, Daily at bedtime, # 30 tablet, 2 Refills, Maintenance, 09/17/19 14:28:00 EDT, [facility]/pharmacy #[id number], 167, cm, 07/02/19 18:35:00 EST, Height, 89.8, kg, 07/02/19 18:35:00 EST, Dry Weight Start Date: 09/17/19 Status: Ordered Tylenol Extra Strength 500 mg oral tablet 2 tablet = 1,000 mg, By Mouth, 3 times a day, PRN for pain, not to exceed 3000 mg/day, # 100 tablet, 2 Refills, Maintenance, 06/25/19 8:35:00 EST, Tablet, [id number], 167, cm, 06/09/19 9:20:00 EST, Height Start Date: 06/25/19 Status: Ordered venlafaxine 100 mg oral tablet 1 tablet = 100 mg, By Mouth, 2 times a day, # 180 tablet, 3 Refills, Soft Stop, 06/09/19 9:18:00 EST, [id number], 167, cm, 04/16/19 15:34:00 EST, Height Start Date: 06/09/19 Status: Ordered Vitamin D3 2000 intl units oral capsule 1 capsule = 2,000 International_Units, By Mouth, Daily, # 30 capsule, 5 Refills, Maintenance, 09/17/19 14:31:00 EDT, [facility]/pharmacy #[id number], 167, cm, 07/02/19 18:35:00 EST, Height, 89.8, kg, 07/02/19 18:35:00 EST, Dry Weight Start Date: 09/17/19 Status: Ordered Voltaren 1% topical gel 1 application, Topically, 4 times a day, not to exceed 32 grams/day, # 100 Gm, 11 Refills, Maintenance, 06/09/19 9:18:00 EST, Gel, [id number], 1 application Topically 4 times a day,Instr:not to exceed 32 grams/day, 167, cm, 04/16/19 15:34:00 E... Start Date: 06/09/19 Status: Ordered Problem List Condition Effective Dates Status Health Status Inform ant Allergy disorder(Confirmed) Active Anxiety and depression(Confirmed) Active Constipation(Confirmed) Active Fibromyalgia(Confirmed) Active Fracture of orbital floor, b low-out, closed(Confirmed) 1 Active Hemorrhoids(Confirmed) Active Insomnia disorder related to another mental disorder(Confirmed) Active OREN (obstructive sleep apnea)(Confirmed) 05/2016 Active Vitamin D deficiency(Confirmed) Active 1Right side Diagnosis Diagnosis Type Effective Dates Health Status Clinical Service Informant Fibromyalgia Discharge Diagnosis 09/17/19 Anxiety and depression Discharge Diagnosis 09/17/19 Social History Social History Type Response Tobacco Other: PT STATES BASSAM T 2014. Sex
--- OUTSIDE RECORDS SUMMARY | 2022-08-18 18:25 | XMS_ITS | Continuity of Care Document ---
Author Name Unknown Organization [facility] Address [address] [place] [address]- Care Team Providers Care Veneer Sample Maker Name Role Phone Douglas SALINAS, Gin Zaragoza Primary Care Physician [facility] - 11/23/21 [facility] [address], [place] [address] Allergies, Adverse Reactions, Alerts No Known [...] 02/11/07 Given 1Admin Note: at outside clinic -[facility] - per patient 2Result Comment: [03/18/2013] flulaval 3Admin Note: vis given dated 10/29/11 4Admin Note: Pt states rec'd in December at [facility] 5Admin Note: VIS given Medications Blood Pressure Monitor See Instructions, # 1 each, Maintenance, Dx: elevated BP reading without diagnosis of HTN, lightheadedness Check BP once daily, 07/01/20 8:53:00 EST, Supply Start Date: 07/01/20 Status: Ordered busPIRone 15 mg oral tablet 1 tablet = 15 mg, By Mouth, 3 times a day, # 90 tablet, 5 Refills, Maintenance, 09/06/21 20:40:00 EDT, [facility]/pharmacy #[id number], note dose change, 167, cm, 07/24/21 15:14:00 EDT, Height Start Date: 09/06/21 Status: Ordered clindamycin 1% topical solution 1 application, Topically, 2 times a day, # 60 mL, 0 Refills, Maintenance, 11/23/21 16:41:00 EDT, Solution, [facility]/pharmacy #[id number], Partial fill upon patient request if the prescription is for a schedule II opioid drug., 1 application Topically 2 times a d... Start Date: 11/23/21 Status: Ordered diclofenac 1% topical gel See Instructions, APPLY TO AFFECTED AREA 4 TIMES A DAY, # 100 Gm, 0 Refills, [id number], 25, APPLY TO AFFECTED AREA 4 TIMES [...] Replace Required Details, Route to Pharmacy Electronically, [id number], 167, cm, 09/18/21 9:00:00 EDT, Height Start Date: 10/04/21 Status: Ordered meclizine 12.5 mg oral tablet 1 tablet = 12.5 mg, By Mouth, 3 times a day, TAKE 1 TABLET BY MOUTH THREE TIMES A DAY NEEDED FORDIZZINESS, # 40 tablet, 1 Refills, 08/24/21 14:23:00 EDT, [facility]/pharmacy #[id number], 167, cm, 07/24/21 15:14:00 EDT, Height [...] 06/12/21 14:13:00 EST, Route to Pharmacy Electronically, [facility]/pharmacy #[id number], Partial fill upon patient request if the prescriptio... Start Date: 06/12/21 Stop Date: 06/19/21 Status: Ordered venlafaxine 100 mg oral tablet 1 tablet = 100 mg, By Mouth, 2 times a day, # 60 tablet, 5 Refills, Maintenance, 06/12/21 13:55:00 EST, Tablet, [facility]/pharmacy #[id number], Partial fill upon patient request if [...]
--- OUTSIDE RECORDS SUMMARY | 2022-08-18 18:25 | XMS_ITS | Continuity of Care Document ---
Author Name Unknown Organization [facility] Address [address] [place] [address]- Care Team Providers Care Senior Behavioral Scientist Name Role Phone Douglas SALINAS, Gin Zaragoza Primary Care Physician [facility] Date[facility]s): 07/21/19 - 07/31/19 [facility] [address] [place] [address]- [facility] Attending Physician: Admtr, Majo Allergies, Adverse Reactions, Alerts No Known Medication [...] 02/11/07 Given 1Admin Note: at outside clinic -[facility] - per patient 2Result Comment: [03/18/2013] flulaval 3Admin Note: vis given dated 10/29/11 4Admin Note: Pt states rec'd in December at [facility] 5Admin Note: VIS given Medications busPIRone 15 mg oral tablet 1 tablet = 15 mg, By Mouth, 3 times a day, # 90 tablet, 5 Refills, Maintenance, 03/27/19 8:49:38 EST, note dose change Start Date: 03/27/19 Status: Ordered capsaicin 0.025% topical cream 1 application, Topically, 2 times a day, # 45 Gm, 5 Refills, Maintenance, 06/09/19 9:17:00 EST, Cream, [facility]/pharmacy #[id number], 1 application Topically 2 times a day, 167, cm, 04/16/19 15:34:00 EST, Height Start Date: 06/09/19 Status: Ordered gabapentin 100 mg oral capsule 200 mg, 2, capsule, By Mouth, Daily at bedtime, # 60 capsule, Refills 5, Tot. Refills 5, Maintenance, 06/09/19 9:19:00 EST, Route to Pharmacy Electronically, [facility]/pharmacy #[id number], 167, cm, 04/16/19 15:34:00 EST, Height Start Date: 06/09/19 Status: Ordered gabapentin 300 mg oral capsule 300 mg, 1, capsule, By Mouth, Daily at bedtime, # 30 capsule, Refills 2, Tot. Refills 2, Maintenance, 04/16/19 16:03:00 EST, [id number] increasing ode 04/16, 167, cm, 04/16/19 15:34:00 EST, Height Start Date: 04/16/19 Status: Ordered Lac-Hydrin 12% cream 1 application, Topically, 2 times a day, # 385 Gm, 11 Refills, Maintenance, 06/09/19 9:18:00 EST, Cream, [facility]/pharmacy #[id number], 1 application Topically 2 times a day, 167, cm, 04/16/19 15:34:00 EST, Height Start Date: 06/09/19 Status: Ordered promethazine 25 mg oral tablet 1 tablet = 25 mg, By Mouth, Every 6 hours, PRN as needed for nausea/vomiting, # 60 tablet, 1 Refills, Maintenance, 03/05/19 18:32:40 EST Start Date: 03/05/19 Status: Ordered Tylenol Extra Strength 500 mg oral tablet 2 tablet = 1,000 mg, By Mouth, 3 times a day, PRN for pain, not to exceed 3000 mg/day, # 100 tablet, 2 Refills, Maintenance, 06/25/19 8:35:00 EST, Tablet, [facility]/pharmacy #[id number], 167, cm, 06/09/19 9:20:00 EST, Height [...] Daily, # 30 capsule, 5 Refills, Maintenance, 02/19/19 16:43:42 EDT Start Date: 02/19/19 Status: Ordered Voltaren 1% topical gel 1 [...]
--- OUTSIDE RECORDS SUMMARY | 2022-08-18 18:25 | XMS_ITS | Continuity of Care Document ---
Author Name Unknown Organization [facility] Address [address] [place] [address]- Care Team Providers Care Chief Construction Inspector Name Role Phone Douglas SALINAS, Gin Zaragoza Primary Care Physician Encounter [facility] Date(s): 05/12/19 - 06/13/19 [facility] [address] [place] [address]- [facility] Attending Physician: Gutierrez Moon MD Admitting Physician: Gutierrez Moon MD Allergies, Adverse Reactions, Alerts No Known Medication [...] Note: Pt states rec'd in December at [facility] 5Admin Note: VIS given Medications busPIRone 15 mg oral tablet 1 tablet = 15 mg, By Mouth, 3 times a day, # 90 tablet, 5 Refills, Maintenance, 03/27/19 8:49:38 EST, note dose change Start Date: 03/27/19 Status: Ordered capsaicin 0.025% topical cream 1 application, Topically, 2 times a day, # 45 Gm, 5 Refills, Maintenance, 06/09/19 9:17:00 EST, Cream, [facility]/pharmacy #[id number], 1 application Topically 2 times a day, 167, cm, 04/16/19 15:34:00 EST, Height Start Date: 06/09/19 Status: Ordered gabapentin 100 mg oral capsule 200 mg, 2, capsule, By Mouth, Daily at bedtime, # 60 capsule, Refills 5, Tot. Refills 5, Maintenance, 06/09/19 9:19:00 EST, Route to Pharmacy Electronically, [facility]/pharmacy #[id number], 167, cm, 04/16/19 15:34:00 EST, Height Start Date: 06/09/19 Status: Ordered gabapentin 300 mg oral capsule 300 mg, 1, capsule, By Mouth, Daily at bedtime, # 30 capsule, Refills 2, Tot. Refills 2, Maintenance, 04/16/19 16:03:00 EST, Route to Pharmacy Electronically, [facility]/pharmacy #[id number], increasing ode 04/16, 167, cm, 04/16/19 15:34:00 EST, Height Start Date: 04/16/19 Status: Ordered Lac-Hydrin 12% cream 1 application, Topically, 2 times a day, # 385 Gm, 11 Refills, Maintenance, 06/09/19 9:18:00 EST, Cream, [facility]/pharmacy #[id number], 1 application Topically 2 [...] mg/day, # 100 tablet, 2 Refills, Maintenance, 05/09/19 11:53:00 EST, Tablet, [facility]/pharmacy #[id number], 167, cm, 04/16/19 15:34:00 EST, Height Start Date: 05/09/19 Status: Ordered venlafaxine 100 mg oral tablet [...]
--- OUTSIDE RECORDS SUMMARY | 2022-08-18 18:25 | XMS_ITS | Continuity of Care Document ---
Author Name Unknown Organization [facility] Address [address] [place] [address]- Care Team Providers Care Animal Husbandry Professor Name Role Phone Douglas SALINAS, Gin Zaragoza Primary Care Physician [facility] 06/28/21 - 08/04/21 [facility] [address] [place], [place] [address] Attending Physician: Not on Staff, Attending MD Allergies, Adverse Reactions, Alerts No Known [...] 02/11/07 Given 1Admin Note: at outside clinic -[facility] - per patient 2Result Comment: [03/18/2013] flulaval 3Admin Note: vis given dated 10/29/11 4Admin Note: Pt states rec'd in December at [facility] 5Admin Note: VIS given Medications Blood Pressure Monitor See Instructions, # 1 each, Maintenance, Dx: elevated BP reading without diagnosis of HTN, lightheadedness Check BP once daily, 07/01/20 8:53:00 EST, Supply Start Date: 07/01/20 Status: Ordered busPIRone 15 mg oral tablet 1 tablet = 15 mg, By Mouth, 3 times a day, # 90 tablet, 5 Refills, Maintenance, 11/01/20 14:39:00 EDT, [facility]/pharmacy #[id number], note dose change, 167, cm, 06/16/20 14:00:00 EST, Height, 89.8, kg, 07/01/2017:35:00 EST, Dry Weight Start Date: 11/01/20 Status: Ordered diclofenac 1% topical gel See Instructions, APPLY TO AFFECTED AREA 4 TIMES A DAY, # 100 Gm, 0 Refills, [facility] ST[id number], 25, APPLY TO AFFECTED AREA 4 TIMES [...] 06/12/21 14:13:00 EST, Route to Pharmacy Electronically, [facility]/pharmacy #[id number], Partial fill upon patient request if the prescriptio... Start Date: 06/12/21 Stop Date: 06/19/21 Status: Ordered venlafaxine 100 mg oral tablet 1 tablet = 100 mg, By Mouth, 2 times a day, # 60 tablet, 5 Refills, Maintenance, 06/12/21 13:55:00 EST, Tablet, [facility]/pharmacy #[id number], Partial fill upon patient request if the [...]
--- OUTSIDE RECORDS SUMMARY | 2022-08-18 18:25 | XMS_ITS | Continuity of Care Document ---
Author Name Unknown Organization [facility] Address [address] [place] [address]- Care Team Providers Care Teletype Adjuster Name Role Phone Douglas SALINAS, Gin Zaragoza Primary Care Physician Encounter [facility] Date(s): 12/04/21 - 01/04/[address] [address]- Attending Physician: Douglas SALINAS, Gin Zaragoza Admitting [...] 02/11/07 Given 1Admin Note: at outside clinic -[facility] - per patient 2Result Comment: [03/18/2013] flulaval 3Admin Note: vis given dated 10/29/11 4Admin Note: Pt states rec'd in December at [facility] 5Admin Note: VIS given [...] tablet, 5 Refills, Maintenance, 09/06/21 20:40:00 EDT, [facility]/pharmacy #[id number], note dose change, [...] A DAY, # 100 Gm, 0 Refills, [facility] 668[facility], 25, APPLY TO AFFECTED AREA 4 TIMES [...] Replace Required Details, Route to Pharmacy Electronically, [facility], 167, cm, 09/18/21 9:00:00 EDT, Height Start Date: 10/04/21 Status: Ordered meclizine 12.5 mg oral tablet 1 tablet = 12.5 mg, By Mouth, 3 times a day, TAKE 1 TABLET BY MOUTH THREE TIMES A DAY NEEDED FORDIZZINESS, # 40 tablet, 1 Refills, 08/24/21 14:23:00 EDT, [facility]/pharmacy #[id number], 167, cm, 07/24/21 15:14:00 EDT, [...] 06/12/21 14:13:00 EST, Route to Pharmacy Electronically, [facility]/pharmacy #[id number], Partial fill upon patient request if the prescriptio... Start Date: 06/12/21 Stop Date: 06/19/21 Status: Ordered venlafaxine 100 mg oral tablet 1 tablet, By Mouth, 2 times a day, # 60 tablet, 2 Refills, [facility] [id number], 167, cm, 11/23/21 16:00:00 EDT, Height Start Date: 12/04/21 Status: Ordered Problem List Condition Effective Dates [...] Other: PT STATES BASSAM T 2014. Sex Care Team Personnel Name: Gin Cole NP Address: [address] [place] [address]
--- OUTSIDE RECORDS SUMMARY | 2022-08-18 18:25 | XMS_ITS | Continuity of Care Document ---
Author Name Unknown Organization [facility] Address Unknown Care Team Providers Care Financial Services Technician Name Role Phone Douglas SALINAS, Gin Zaragoza Primary Care Physician [phone] Encounter [facility] Date(s): 07/24/21 - 08/23/21 [facility] Attending Physician: AdmMajo hammond Admitting Physician: Admtr, Majo Referring Physician: Admtr, [id number] Allergies, Adverse Reactions, Alerts [...] 02/11/07 Given 1Admin Note: at outside clinic -[facility] - per patient 2Result Comment: [03/18/2013] flulaval 3Admin Note: vis given dated 10/29/11 4Admin Note: Pt states rec'd in December at [facility] 5Admin Note: VIS given Medications Blood Pressure Monitor See Instructions, # 1 each, Maintenance, Dx: elevated BP reading without diagnosis of HTN, lightheadedness Check BP once daily, 07/01/20 8:53:00 EST, Supply Start Date: 07/01/20 Status: Ordered busPIRone 15 mg oral tablet 1 tablet = 15 mg, By Mouth, 3 times a day, # 90 tablet, 5 Refills, Maintenance, 11/01/20 14:39:00 EDT, [facility]/pharmacy #[id number], note dose change, 167, cm, 06/16/20 14:00:00 EST, Height, 89.8, kg, 07/01/2017:35:00 EST, Dry Weight Start Date: 11/01/20 Status: Ordered diclofenac 1% topical gel See Instructions, APPLY TO AFFECTED AREA 4 TIMES A DAY, # 100 Gm, 0 Refills, [facility] 16[facility], 25, APPLY TO AFFECTED AREA 4 TIMES A DAY, 167, cm, 05/10/21 14:43:00 EST, Height, 89.8, kg, 07/02/19 18:35:00 EST, Dry Weight Start Date: 05/28/21 Status: Ordered meclizine 12.5 mg oral tablet 1 tablet = 12.5 mg, By Mouth, 3 times a day, TAKE 1 TABLET BY MOUTH THREE TIMES A DAY NEEDED FORDIZZINESS, # 40 tablet, 1 Refills, 08/24/21 14:23:00 EDT, [facility]/pharmacy #[id number], 167, cm, 07/24/21 15:14:00 EDT, Height [...] 06/12/21 14:13:00 EST, Route to Pharmacy Electronically, [facility]/pharmacy #[id number], Partial fill upon patient request if the prescriptio... Start Date: 06/12/21 Stop Date: 06/19/21 Status: Ordered venlafaxine 100 mg oral tablet 1 tablet = 100 mg, By Mouth, 2 times a day, # 60 tablet, 5 Refills, Maintenance, 06/12/21 13:55:00 EST, Tablet, [facility]/pharmacy #[id number], Partial fill upon patient request if [...]
--- OUTSIDE RECORDS SUMMARY | 2022-08-18 18:25 | XMS_ITS | Continuity of Care Document ---
Author Name Unknown Organization [facility] Address [address] [place] [id number]- Care Team Providers Care Winding Department Supervisor Name Role Phone Douglas SALINAS, Gin Zaragoza Primary Care Physician [phone] [facility] Date[facility]s): 12/17/19 - 01/16/20 [facility] [address] [place] [address] [facility] Allergies, Adverse Reactions, Alerts No Known Medication [...] 02/11/07 Given 1Admin Note: [facility] - [facility] 2Result Comment: [03/18/2013] flulaval 3Admin Note: vis given dated 10/29/11 4Admin Note: Pt states rec'd in December at [facility] 5Admin Note: VIS given Medications busPIRone 15 mg oral tablet 1 tablet = 15 mg, By Mouth, 3 times a day, # 90 tablet, 5 Refills, Maintenance, 10/23/19 14:34:00 EDT, [facility]/pharmacy #[id number], note dose change, 167, cm, 10/23/19 13:35:00 EDT, Height, 89.8, kg, 07/01/2017:35:00 EST, Dry Weight Start Date: 10/23/19 Status: Ordered capsaicin 0.025% topical cream 1 application, Topically, 2 times a day, # 45 Gm, 5 Refills, Maintenance, 10/23/19 14:12:00 EDT, Cream, [facility]/pharmacy #[id number], 1 application Topically 2 times a [...] 10/23/19 14:15:00 EDT, Route to Pharmacy Electronically, [facility]/pharmacy#[id number], 167, cm, 10/23/19 13:35:00 EDT, Height, 89.8... Start Date: 10/23/19 Status: Ordered Lac-Hydrin 12% cream 1 application, Topically, 2 times a day, # 385 Gm, 11 Refills, Maintenance, 06/09/19 9:18:00 EST, Cream, [facility]/pharmacy #[id number], 1 application Topically 2 times a day, 167, cm, 04/16/19 15:34:00 EST, Height Start Date: 06/09/19 Status: Ordered omeprazole 20 mg oral enteric coated capsule 1 capsule = 20 mg, By Mouth, 2 times a day, # 60 capsule, 0 Refills, Maintenance, 10/23/19 14:17:00EDT, [facility]/pharmacy #[id number], 167, cm, 10/23/19 13:35:00 EDT, Height, [...] 11/27/19 13:14:00 EDT, [id number], cm, 10/23/19 13:35:00 EDT, Height, 89.8, kg, 07/02/19 18... Start Date: 11/27/19 Status: Ordered topiramate 50 mg oral tablet 1 tablet = 50 mg, By Mouth, Daily at bedtime, # 30 tablet, 2 Refills, Maintenance, 10/12/19 10:13:00 EDT, [facility]/pharmacy #[id number], dose increase 10/12/19, 167, cm, 07/02/19 18:35:00 EST, Height, 89.8, kg, 07/02/19 18:35:00 EST, Dry Weight Start Date: 10/12/19 Status: Ordered Tylenol Extra Strength 500 mg oral tablet 2 tablet = 1,000 mg, By Mouth, 3 times a day, PRN for pain, not to exceed 3000 mg/day, # 100 tablet, 2 Refills, Maintenance, 11/05/19 14:33:00 EDT, Tablet, [facility]/pharmacy #[id number], 167, cm, 10/23/19 13:35:00 EDT, Height, 89.8, kg, 07/02/19 18:35:00 EST, Dr... Start Date: 11/05/19 Status: Ordered venlafaxine 100 mg oral tablet TAKE 1 TABLET BY MOUTH TWICE A DAY Start Date: 11/27/19 Status: Ordered Vitamin D3 2000 intl units oral capsule 1 capsule = 2,000 International_Units, By Mouth, Daily, # 30 capsule, 5 Refills, Maintenance, 09/17/19 14:31:00 EDT, [facility]/pharmacy #[id number], 167, cm, 07/02/19 18:35:00 EST, Height, [...]
--- OUTSIDE RECORDS SUMMARY | 2022-08-18 18:25 | XMS_ITS | Continuity of Care Document ---
Author Name Unknown Organization [facility] Address [address] [place] [address]- Care Team Providers Care Director Of Radiology Name Role Phone Douglas SALINAS, Gin Zaragoza Primary Care Physician [facility] Date[facility]s): 12/28/21 - 01/27/22 [facility] [address] [place] [address]- Attending Physician: Admtr, [id number] Allergies, Adverse Reactions, Alerts No Known Medication [...] Pt states rec'd in December at [facility] 5Admin Note: VIS given Medications Blood Pressure Monitor See Instructions, # 1 each, Maintenance, Dx: elevated BP reading without diagnosis of HTN, lightheadedness Check BP once daily, 07/01/20 8:53:00 EST, Supply Start Date: 07/01/20 Status: Ordered busPIRone 15 mg oral tablet 1 tablet = 15 mg, By Mouth, 3 times a day, # 90 tablet, 5 Refills, Maintenance, 09/06/21 20:40:00 EDT, [facility]/pharmacy #[id number], note dose change, 167, cm, 07/24/21 15:14:00 EDT, Height Start Date: 09/06/21 Status: Ordered clindamycin 1% topical solution 1 application, Topically, 2 times a day, # 60 mL, 0 Refills, Maintenance, 11/23/21 16:41:00 EDT, Solution, [facility]/pharmacy #[id number], Partial fill upon patient request if the prescription is for a schedule II opioid drug., 1 application Topically 2 times a d... Start Date: 11/23/21 Status: Ordered diclofenac 1% topical gel See Instructions, APPLY TO AFFECTED AREA 4 TIMES A DAY, # 100 Gm, 0 Refills, [facility] 439[facility], 25, APPLY TO AFFECTED AREA 4 TIMES [...] Replace Required Details, Route to Pharmacy Electronically, [facility] 557[facility], 167, cm, 09/18/21 9:00:00 EDT, Height Start Date: 10/04/21 Status: Ordered meclizine 12.5 mg oral tablet 1 tablet = 12.5 mg, By Mouth, 3 times a day, TAKE 1 TABLET BY MOUTH THREE TIMES A DAY NEEDED FORDIZZINESS, # 40 tablet, 1 Refills, 08/24/21 14:23:00 EDT, [facility]/pharmacy #[id number], 167, cm, 07/24/21 15:14:00 EDT, [...] 14:13:00 EST, Route to Pharmacy Electronically, [facility]/pharmacy #[id number], Partial fill upon patient request if the prescriptio... Start Date: 06/12/21 Stop Date: 06/19/21 Status: Ordered venlafaxine 100 mg oral tablet 1 tablet, By Mouth, 2 times a day, # 60 tablet, 2 Refills, [facility] 15577, 167, cm, 11/23/21 16:00:00 EDT, Height Start Date: 12/04/21 Status: Ordered Problem List Condition Confirmation Course Effective Dates Status Health St [facility] Informant Allergy disorder Confirmed Active Anal skin tag Confirmed Active Anxiety and depression Confirmed Active Constipation Confirmed Active Fibromyalgia Confirmed Active Fracture of orbital floor, blow-out, closed 1 Confirmed Active Hemorrhoids Confirmed Active 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 Sex Patient Care team information Personnel Name: Gin Cole NP Address: Address: [address] [place] [address] [place], [place] [address]
--- OUTSIDE RECORDS SUMMARY | 2022-08-18 18:25 | XMS_ITS | Continuity of Care Document ---
Author Name Unknown Organization [facility] Address [address] [place] [address]- Care Team Providers Care Beveler Name Role Phone Douglas SALINAS, Gin Zaragoza Primary Care Physician [facility] Date[facility]s): 05/10/21 - 06/09/21 [facility] [address] [place] [id number]- Attending Physician: Admtr, Ar8 Allergies, Adverse Reactions, Alerts No Known Medication Allergies Substance Reaction Severity Status Fresh Fruit and Vegetables A ctive Immunizations Given and Recorded Vaccine Date Status Refusal Reason SARS-CoV-2 (COVID-19) mRNA BNT-162b2 vac 10/28/20 Recorded SARS-CoV-2 (COVID-19) mRNA BNT-162b2 vac 10/05/20 Recorded influenza virus vaccine, inactivated 03/08/20 You rded [...] influenza virus vaccine, inactivated 01/19/10 You rded tetanus/diphtheria/pertussis, acel(Tdap) 03/21/15 Given Influenza Virus Vaccine (oldterm) 5 02/11/07 Given 1Admin Note: at outside clinic -[facility] - per patient 2Result Comment: [03/18/2013] flulaval 3Admin Note: vis given dated 10/29/11 4Admin Note: Pt states rec'd in December at [facility] 5Admin Note: VIS given Medications Blood Pressure Monitor See Instructions, # 1 each, Maintenance, Dx: elevated BP reading without diagnosis of HTN, lightheadedness Check BP once daily, 07/01/20 8:53:00 EST, Supply Start Date: 07/01/20 Status: Ordered busPIRone 15 mg oral tablet 1 tablet = 15 mg, By Mouth, 3 times a day, # 90 tablet, 5 Refills, Maintenance, 11/01/20 14:39:00 EDT, [facility]/pharmacy #[id number], note dose change, 167, cm, 06/16/20 14:00:00 EST, Height, 89.8, kg, 07/01/2017:35:00 EST, Dry Weight Start Date: 11/01/20 Status: Ordered capsaicin 0.025% topical cream 1 application, Topically, 2 times a day, # 45 Gm, 5 Refills, Maintenance, 10/23/19 14:12:00 EDT, Cream, [facility]/pharmacy #[id number], 1 application Topically 2 times a day, 167, cm, 10/23/19 13:35:00 EDT, Height, 89.8, kg, 07/02/19 18:35:00 EST, Dry Weight Start Date: 10/23/19 Status: Ordered clindamycin 1% topical solution 1 application, Topically, 2 times a day, for axillary, # 60 mL, 5 Refills, Maintenance, 06/16/20 14:36:00 EST, Solution, [facility]/pharmacy #[id number], Partial fill upon patient request if the prescription is for a schedule II opioid drug., 1 application Topical... Start Date: 06/16/20 Stop Date: 09/08/20 Status: Ordered diclofenac 1% topical gel See Instructions, APPLY TO AFFECTED AREA 4 TIMES A DAY, # 100 Gm, 0 Refills, [facility] STORE [id number], 25, APPLY TO AFFECTED AREA 4 TIMES A DAY, 167, cm, 05/10/21 14:43:00 EST, Height, 89.8, kg, 07/02/19 18:35:00 EST, Dry Weight Start Date: 05/28/21 Status: Ordered Lac-Hydrin 12% cream 1 application, [...] 60 capsule, 0 Refills, Maintenance, 10/23/19 14:17:00EDT, [facility]/pharmacy #[id number], 167, cm, 10/23/19 13:35:00 EDT, Height, [...] 11/27/19 13:14:00 EDT, Route to Pharmacy Electronically, [facility]/pharmacy #[id number], 167, cm, 10/23/19 13:35:00 EDT, Height, 89.8, kg, 07/02/19 18... Start Date: 11/27/19 Status: Ordered topiramate 50 mg oral tablet 1 tablet = 50 mg, By Mouth, Daily at bedtime, # 30 tablet, 2 Refills, Maintenance, 10/12/19 10:13:00 EDT, [facility]/pharmacy #[id number], dose increase 10/12/19, 167, cm, 07/02/19 18:35:00 EST, Height, 89.8, kg, 07/02/19 18:35:00 EST, Dry Weight Start Date: 10/12/19 Status: Ordered Tylenol Extra Strength 500 mg oral tablet 2 tablet = 1,000 mg, By Mouth, 3 times a day, PRN for pain, not to exceed 3000 mg/day, # 100 tablet, 2 Refills, Maintenance, 11/05/19 14:33:00 EDT, Tablet, [facility]/pharmacy #[id number], 167, cm, 10/23/19 13:35:00 EDT, Height, 89.8, kg, 07/02/19 18:35:00 EST, Dr... Start Date: 11/05/19 Status: Ordered venlafaxine 100 mg oral tablet 1 tablet = 100 mg, By Mouth, 2 times a day, # 60 tablet, 5 Refills, Maintenance, 12/26/20 13:59:00 EDT, Tablet, [facility]/pharmacy #[id number], Partial fill upon patient request if the prescription is for a schedule II opioid drug., 167, cm, 06/16/20 14:00:00 EST... Start Date: 12/26/20 Status: Ordered venlafaxine 100 mg oral tablet TAKE 1 TABLET BY MOUTH TWICE A DAY Start Date: 11/27/19 Status: Ordered Vitamin D3 2000 intl units oral capsule 1 capsule = 2,000 International_Units, By Mouth, Daily, # 30 capsule, 5 Refills, Maintenance, 09/17/19 14:31:00 EDT, [facility]/pharmacy #[id number], 167, cm, 07/02/19 18:35:00 EST, [...]
--- OUTSIDE RECORDS SUMMARY | 2022-08-18 18:25 | XMS_ITS | Continuity of Care Document ---
Author Name Unknown Organization [facility] Address [address] [place] [phone]- Care Team Providers Care Data Center Engineer Name Role Phone Douglas SALINAS, Gin Zaragoza Primary Care Physician [facility] Date[facility]s): 07/01/20 - 08/28/20 [facility] [address] [place] [address]- Attending Physician: Douglas SALINAS, Gin Zaragoza Admitting [...] tablet, 5 Refills, Maintenance, 10/23/19 14:34:00 EDT, [facility]/pharmacy #[id number], note dose change, 167, cm, 10/23/19 13:35:00 EDT, Height, 89.8, kg, 07/01/2017:35:00 EST, Dry Weight Start Date: 10/23/19 Status: Ordered capsaicin 0.025% topical cream 1 application, Topically, 2 times a day, # 45 Gm, 5 Refills, Maintenance, 10/23/19 14:12:00 EDT, Cream, [facility]/pharmacy #[id number], 1 application Topically 2 times a day, 167, cm, 10/23/19 13:35:00 EDT, Height, 89.8, kg, 07/02/19 18:35:00 EST, Dry Weight Start Date: 10/23/19 Status: Ordered clindamycin 1% topical solution 1 application, Topically, 2 times a day, for axillary, # 60 mL, 5 Refills, Maintenance, 06/16/20 14:36:00 EST, Solution, [facility]/pharmacy #[id number], Partial fill upon patient request [...] 06/13/20 15:13:00 EST, Route to Pharmacy Electronically, [facility]/pharmacy#[id number], 167, cm, 10/23/19 13:35:00 EDT, Height, 89.8... Start Date: 06/13/20 Status: Ordered Lac-Hydrin 12% cream 1 application, Topically, 2 times a day, # 385 Gm, 11 Refills, Maintenance, 06/09/19 9:18:00 EST, Cream, [facility]/pharmacy #[id number], 1 application Topically 2 times a day, 167, cm, 04/16/19 15:34:00 EST, Height Start Date: 06/09/19 Status: Ordered omeprazole 20 mg oral enteric coated capsule 1 capsule = 20 mg, By Mouth, 2 times a day, # 60 capsule, 0 Refills, Maintenance, 10/23/19 14:17:00EDT, [facility]/pharmacy #[id number], 167, cm, 10/23/19 13:35:00 EDT, [...] 11/27/19 13:14:00 EDT, Route to Pharmacy Electronically, [facility]/pharmacy #[id number], 167, cm, 10/23/19 13:35:00 EDT, Height, 89.8, kg, 07/02/19 18... Start Date: 11/27/19 Status: Ordered topiramate 50 mg oral tablet 1 tablet = 50 mg, By Mouth, Daily at bedtime, # 30 tablet, 2 Refills, Maintenance, 10/12/19 10:13:00 EDT, [facility]/pharmacy #[id number], dose increase 10/12/19, 167, cm, 07/02/19 18:35:00 EST, Height, 89.8, kg, 07/02/19 18:35:00 EST, Dry Weight Start Date: 10/12/19 Status: Ordered Tylenol Extra Strength 500 mg oral tablet 2 tablet = 1,000 mg, By Mouth, 3 times a day, PRN for pain, not to exceed 3000 mg/day, # 100 tablet, 2 Refills, Maintenance, 11/05/19 14:33:00 EDT, Tablet, [facility]/pharmacy #[id number], 167, cm, 10/23/19 13:35:00 EDT, Height, 89.8, kg, 07/02/19 18:35:00 EST, DrEric.. Start Date: 11/05/19 Status: Ordered venlafaxine 100 mg oral tablet 1 tablet = 100 mg, By Mouth, 2 times a day, # 60 tablet, 5 Refills, Maintenance, 06/14/20 11:04:00 EST, Tablet, [facility]/pharmacy #[id number], Partial fill upon patient request [...] capsule, 5 Refills, Maintenance, 09/17/19 14:31:00 EDT, [facility]/pharmacy #[id number], 167, cm, 07/02/19 18:35:00 EST, [...]
--- OUTSIDE RECORDS SUMMARY | 2022-08-18 18:25 | XMS_ITS | Continuity of Care Document ---
Author Name Unknown Organization [facility] Address [address] [place] [phone]- Care Team Providers Care Group Tester Name Role Phone Douglas SALINAS, Gin Zaragoza Primary Care Physician [facility] Date[facility]s): 08/22/21 - 11/08/21 [facility] [address] [place] [id number] Attending Physician: Not on Staff, Attending MD Referring Physician: Douglas SALINAS, Gin Zaragoza Allergies, [...] 02/11/07 Given 1Admin Note: at outside clinic -[facility] - per patient 2Result Comment: [03/18/2013] flulaval 3Admin Note: vis given dated 10/29/11 4Admin Note: Pt states rec'd in December at [facility] 5Admin Note: VIS given Medications Blood Pressure Monitor See Instructions, # 1 each, Maintenance, Dx: elevated BP reading without diagnosis of HTN, lightheadedness Check BP once daily, 07/01/20 8:53:00 EST, Supply Start Date: 07/01/20 Status: Ordered busPIRone 15 mg oral tablet 1 tablet = 15 mg, By Mouth, 3 times a day, # 90 tablet, 5 Refills, Maintenance, 09/06/21 20:40:00 EDT, [facility]/pharmacy #[id number], note dose change, 167, cm, 07/24/21 15:14:00 EDT, Height Start Date: 09/06/21 Status: Ordered diclofenac 1% topical gel See Instructions, APPLY TO AFFECTED AREA 4 TIMES A DAY, # 100 Gm, 0 Refills, [facility] STORE [id number], 25, APPLY TO AFFECTED AREA 4 TIMES [...] Replace Required Details, Route to Pharmacy Electronically, [facility] [id number], 167, cm, 09/18/21 9:00:00 EDT, Height Start Date: 10/04/21 Status: Ordered meclizine 12.5 mg oral tablet 1 tablet = 12.5 mg, By Mouth, 3 times a day, TAKE 1 TABLET BY MOUTH THREE TIMES A DAY NEEDED FORDIZZINESS, # 40 tablet, 1 Refills, 08/24/21 14:23:00 EDT, [facility]/pharmacy #[id number], 167, cm, 07/24/21 15:14:00 EDT, Height [...] 06/12/21 14:13:00 EST, Route to Pharmacy Electronically, [facility]/pharmacy #[id number], Partial fill upon patient request if the prescriptio... Start Date: 06/12/21 Stop Date: 06/19/21 Status: Ordered venlafaxine 100 mg oral tablet 1 tablet = 100 mg, By Mouth, 2 times a day, # 60 tablet, 5 Refills, Maintenance, 06/12/21 13:55:00 EST, Tablet, [facility]/pharmacy #[id number], Partial fill upon patient request if [...]
--- OUTSIDE RECORDS SUMMARY | 2022-08-18 18:25 | XMS_ITS | Continuity of Care Document ---
Author Name Unknown Organization [facility] Address [address] [place] [phone]- Care Team Providers Care Rigging Up Man Name Role Phone Douglas SALINAS, Gin Zaragoza Primary Care Physician Encounter [facility] Date(s): 01/10/22 - 02/09/22 [facility] [address] [place] [id number]- [place] Allergies, Adverse Reactions, Alerts No Known Medication [...] Note: Pt states rec'd in December at [facility] 5Admin Note: VIS given Medications Blood Pressure Monitor See Instructions, # 1 each, Maintenance, Dx: elevated BP reading without diagnosis of HTN, lightheadedness Check BP once daily, 07/01/20 8:53:00 EST, Supply Start Date: 07/01/20 Status: Ordered busPIRone 15 mg oral tablet 1 tablet = 15 mg, By Mouth, 3 times a day, # 90 tablet, 5 Refills, Maintenance, 09/06/21 20:40:00 EDT, [facility]/pharmacy #[id number], note dose change, 167, cm, 07/24/21 15:14:00 EDT, Height Start Date: 09/06/21 Status: Ordered clindamycin 1% topical solution 1 application, Topically, 2 times a day, # 60 mL, 0 Refills, Maintenance, 11/23/21 16:41:00 EDT, Solution, [facility]/pharmacy #[id number], Partial fill upon patient request if the prescription is for a schedule II opioid drug., 1 application Topically 2 times a d... Start Date: 11/23/21 Status: Ordered diclofenac 1% topical gel See Instructions, APPLY TO AFFECTED AREA 4 TIMES A DAY, # 100 Gm, 0 Refills, [facility] STORE [id number], 25, APPLY TO AFFECTED AREA 4 TIMES [...] Replace Required Details, Route to Pharmacy Electronically, [facility] [id number], 167, cm, 09/18/21 9:00:00 EDT, Height Start Date: 10/04/21 Status: Ordered meclizine 12.5 mg oral tablet 1 tablet = 12.5 mg, By Mouth, 3 times a day, TAKE 1 TABLET BY MOUTH THREE TIMES A DAY NEEDED FORDIZZINESS, # 40 tablet, 1 Refills, 08/24/21 14:23:00 EDT, [facility]/pharmacy #[id number], 167, cm, 07/24/21 15:14:00 EDT, [...] 06/12/21 14:13:00 EST, Route to Pharmacy Electronically, [facility]/pharmacy #[id number], Partial fill upon patient request if the prescriptio... Start Date: 06/12/21 Stop Date: 06/19/21 Status: Ordered venlafaxine 100 mg oral tablet 1 tablet, By Mouth, 2 times a day, # 60 tablet, 2 Refills, [facility] STORE [id number], 167, cm, 11/23/21 16:00:00 EDT, Height Start [...] Personnel Name: Gin Cole NP Address: Address: [address] [place] [address]
--- OUTSIDE RECORDS SUMMARY | 2022-08-18 18:25 | XMS_ITS | Continuity of Care Document ---
Author Name Unknown Organization [facility] Address [address] [place] [id number]- Care Team Providers Care Merchandise Shopper Name Role Phone Douglas SALINAS, Gin Zaragoza Primary Care Physician Encounter [facility] ACCT R [id number] Date(s): 04/12/21 - 05/12/[address] [address]- Attending Physician: Majo Brito Admitting Physician: AdmMajo hammond Referring Physician: AdmtrMajo Allergies, Adverse Reactions, Alerts No Known Medication [...] influenza virus vaccine, inactivated 3 12/27/11 Gi suir influenza virus vaccine, inactivated 4 12/28/10 Gi suri influenza virus vaccine, inactivated 01/19/10 You rded tetanus/diphtheria/pertussis, acel(Tdap) 03/21/15 Given Influenza Virus Vaccine (oldterm) 5 02/11/07 Given 1Admin Note: at outside clinic -[facility] - per patient 2Result Comment: [03/18/2013] flulaval 3Admin Note: vis given dated 10/29/11 4Admin Note: Pt states rec'd in December at [facility] 5Admin Note: VIS given Medications Blood Pressure Monitor See Instructions, # 1 each, Maintenance, Dx: elevated BP reading without diagnosis of HTN, lightheadedness Check BP once daily, 07/01/20 8:53:00 EST, Supply Start Date: 07/01/20 Status: Ordered busPIRone 15 mg oral tablet 1 tablet = 15 mg, By Mouth, 3 times a day, # 90 tablet, 5 Refills, Maintenance, 11/01/20 14:39:00 EDT, [facility]/pharmacy #[id number], note dose change, 167, cm, 06/16/20 14:00:00 EST, Height, 89.8, kg, 07/01/2017:35:00 EST, Dry Weight Start Date: 11/01/20 Status: Ordered capsaicin 0.025% topical cream 1 application, Topically, 2 times a day, # 45 Gm, 5 Refills, Maintenance, 10/23/19 14:12:00 EDT, Cream, [facility]/pharmacy #[id number], 1 application Topically 2 times a day, 167, cm, 10/23/19 13:35:00 EDT, Height, 89.8, kg, 07/02/19 18:35:00 EST, Dry Weight Start Date: 10/23/19 Status: Ordered clindamycin 1% topical solution 1 application, Topically, 2 times a day, for axillary, # 60 mL, 5 Refills, Maintenance, 06/16/20 14:36:00 EST, Solution, [facility]/pharmacy #[id number], Partial fill upon patient request if the prescription is for a schedule II opioid drug., 1 application Topical... Start Date: 06/16/20 Stop Date: 09/08/20 Status: Ordered diclofenac 1% topical gel 1 application, Topically, 4 times a day, # 100 Gm, 0 Refills, Maintenance, 05/10/21 17:13:00 EST, Gel, [facility]/pharmacy #[id number], Partial fill upon patient request if the prescription is for a schedule II opioid drug., 167, cm, 05/10/21 14:43:00 EST, Height,... Start Date: 05/10/21 Status: Ordered ibuprofen 800 mg oral tablet 800 mg, 1, tablet, By Mouth, 3 times a day, for 30 days, # 90 tablet, Refills 0, Tot. Refills 0, Acute 06/09/21 17:11:00 EST, 05/10/21 17:11:00 EST, Route to Pharmacy Electronically, [facility]/pharmacy #[id number], Partial fill upon patient request if the prescri... Start Date: 05/10/21 Stop Date: 06/09/21 Status: Ordered Lac-Hydrin 12% cream 1 application, Topically, 2 times a day, # 385 Gm, 11 Refills, Maintenance, 06/09/19 9:18:00 EST, Cream, [facility]/pharmacy #[id number], 1 application Topically 2 times a day, 167, cm, 04/16/19 15:34:00 EST, Height Start Date: 06/09/19 Status: Ordered omeprazole 20 mg oral enteric coated capsule 1 capsule = 20 mg, By Mouth, 2 times a day, # 60 capsule, 0 Refills, Maintenance, 10/23/19 14:17:00EDT, [facility]/pharmacy #[id number], 167, cm, 10/23/19 13:35:00 EDT, [...] 11/27/19 13:14:00 EDT, Route to Pharmacy Electronically, [facility]/pharmacy #[id number], 167, cm, 10/23/19 13:35:00 EDT, Height, 89.8, kg, 07/02/19 18... Start Date: 11/27/19 Status: Ordered topiramate 50 mg oral tablet 1 tablet = 50 mg, By Mouth, Daily at bedtime, # 30 tablet, 2 Refills, Maintenance, 10/12/19 10:13:00 EDT, [facility]/pharmacy #[id number], dose increase 10/12/19, 167, cm, 07/02/19 18:35:00 EST, Height, 89.8, kg, 07/02/19 18:35:00 EST, Dry Weight Start Date: 10/12/19 Status: Ordered Tylenol Extra Strength 500 mg oral tablet 2 tablet = 1,000 mg, By Mouth, 3 times a day, PRN for pain, not to exceed 3000 mg/day, # 100 tablet, 2 Refills, Maintenance, 11/05/19 14:33:00 EDT, Tablet, [facility]/pharmacy #[id number], 167, cm, 10/23/19 13:35:00 EDT, Height, 89.8, kg, 07/02/19 18:35:00 EST, DrEric.. Start Date: 11/05/19 Status: Ordered venlafaxine 100 mg oral tablet 1 tablet = 100 mg, By Mouth, 2 times a day, # 60 tablet, 5 Refills, Maintenance, 12/26/20 13:59:00 EDT, Tablet, [facility]/pharmacy #[id number], Partial fill upon patient [...] capsule, 5 Refills, Maintenance, 09/17/19 14:31:00 EDT, [facility]/pharmacy #[id number], 167, cm, 07/02/19 18:35:00 EST, [...]
--- OUTSIDE RECORDS SUMMARY | 2022-08-18 18:25 | XMS_ITS | Continuity of Care Document ---
Author Name Unknown Organization [facility] Address [address] [place] [phone]- Care Team Providers Care Air Surveillance Operator Name Role Phone Douglas SALINAS, Gin Zaragoza Primary Care Physician Encounter [facility] ACCT R [id number] Date(s): 10/28/19 - 12/03/[address] [address]- [facility] Attending Physician: Douglas SALINAS, Gin Zaragoza Admitting [...] 02/11/07 Given 1Admin Note: at outside clinic -[facility] - per patient 2Result Comment: [03/18/2013] flulaval 3Admin Note: vis given dated 10/29/11 4Admin Note: Pt states rec'd in December at [facility] 5Admin Note: VIS given Medications busPIRone 15 mg oral tablet 1 tablet = 15 mg, By Mouth, 3 times a day, # 90 tablet, 5 Refills, Maintenance, 10/23/19 14:34:00 EDT, [facility]/pharmacy #[id number], note dose change, 167, cm, 10/23/19 13:35:00 EDT, Height, 89.8, kg, 07/01/2017:35:00 EST, Dry Weight Start Date: 10/23/19 Status: Ordered capsaicin 0.025% topical cream 1 application, Topically, 2 times a day, # 45 Gm, 5 Refills, Maintenance, 10/23/19 14:12:00 EDT, Cream, [facility]/pharmacy #[id number], 1 application Topically 2 times [...] 10/23/19 14:15:00 EDT, Route to Pharmacy Electronically, [facility]/pharmacy#[id number], 167, cm, 10/23/19 13:35:00 EDT, Height, 89.8... Start Date: 10/23/19 Status: Ordered Lac-Hydrin 12% cream 1 application, Topically, 2 times a day, # 385 Gm, 11 Refills, Maintenance, 06/09/19 9:18:00 EST, Cream, [facility]/pharmacy #[id number], 1 application Topically 2 times a day, 167, cm, 04/16/19 15:34:00 EST, Height Start Date: 06/09/19 Status: Ordered omeprazole 20 mg oral enteric coated capsule 1 capsule = 20 mg, By Mouth, 2 times a day, # 60 capsule, 0 Refills, Maintenance, 10/23/19 14:17:00EDT, [facility]/pharmacy #[id number], 167, cm, 10/23/19 13:35:00 EDT, Height, 89.8, kg, 07/02/19 18:35:00 EST, Dry Weight Start Date: 10/23/19 Status: Ordered tiZANidine 2 mg oral tablet 2 mg, 1, tablet, By Mouth, 2 times a day, for muscle pains, # 60 tablet, Refills 0, Tot. Refills 0,Maintenance, 11/27/19 13:14:00 EDT, Route to Pharmacy Electronically, [facility]/pharmacy #[id number], 167, cm, 10/23/19 13:35:00 EDT, Height, 89.8, kg, 07/02/19 18... Start Date: 11/27/19 Status: Ordered topiramate 50 mg oral tablet 1 tablet = 50 mg, By Mouth, Daily at bedtime, # 30 tablet, 2 Refills, Maintenance, 10/12/19 10:13:00 EDT, [facility]/pharmacy #[id number], dose increase 10/12/19, 167, cm, 07/02/19 18:35:00 EST, Height, 89.8, kg, 07/02/19 18:35:00 EST, Dry Weight Start Date: 10/12/19 Status: Ordered Tylenol Extra Strength 500 mg oral tablet 2 tablet = 1,000 mg, By Mouth, 3 times a day, PRN for pain, not to exceed 3000 mg/day, # 100 tablet, 2 Refills, Maintenance, 11/05/19 14:33:00 EDT, Tablet, [facility]/pharmacy #[id number], 167, cm, 10/23/19 13:35:00 EDT, Height, 89.8, kg, 07/02/19 18:35:00 EST, Dr... Start Date: 11/05/19 Status: Ordered venlafaxine 100 mg oral tablet TAKE 1 TABLET BY MOUTH TWICE A DAY Start Date: 11/27/19 Status: Ordered Vitamin D3 2000 intl units oral capsule 1 capsule = 2,000 International_Units, By Mouth, Daily, # 30 capsule, 5 Refills, Maintenance, 09/17/19 14:31:00 EDT, [facility]/pharmacy #[id number], 167, cm, 07/02/19 18:35:00 EST, [...]
--- OUTSIDE RECORDS SUMMARY | 2022-08-18 18:25 | XMS_ITS | Continuity of Care Document ---
Author Name Unknown Organization [facility] Address [address] [place] [address]- Care Team Providers Care Privacy Specialist Name Role Phone Douglas SALINAS, Gin Zaragoza Primary Care Physician [facility]counter [facility] Date(s): 06/21/21 - 07/21/21 [facility] [address], [place] [address] Allergies, Adverse Reactions, Alerts No Known Medication [...] 02/11/07 Given 1Admin Note: at outside clinic -[facility] - per patient 2Result Comment: [03/18/2013] flulaval 3Admin Note: vis given dated 10/29/11 4Admin Note: Pt states rec'd in December at [facility] 5Admin Note: VIS given Medications Blood Pressure Monitor See Instructions, # 1 each, Maintenance, Dx: elevated BP reading without diagnosis of HTN, lightheadedness Check BP once daily, 07/01/20 8:53:00 EST, Supply Start Date: 07/01/20 Status: Ordered busPIRone 15 mg oral tablet 1 tablet = 15 mg, By Mouth, 3 times a day, # 90 tablet, 5 Refills, Maintenance, 11/01/20 14:39:00 EDT, [facility]/pharmacy #[id number], note dose change, 167, cm, 06/16/20 14:00:00 EST, Height, 89.8, kg, 07/01/2017:35:00 EST, Dry Weight Start Date: 11/01/20 Status: Ordered diclofenac 1% topical gel See Instructions, APPLY TO AFFECTED AREA 4 TIMES A DAY, # 100 Gm, 0 Refills, [facility] STORE [id number], 25, APPLY TO AFFECTED AREA 4 TIMES [...] 06/12/21 14:13:00 EST, Route to Pharmacy Electronically, [facility]/pharmacy #[id number], Partial fill upon patient request if the prescriptio... Start Date: 06/12/21 Stop Date: 06/19/21 Status: Ordered venlafaxine 100 mg oral tablet 1 tablet = 100 mg, By Mouth, 2 times a day, # 60 tablet, 5 Refills, Maintenance, 06/12/21 13:55:00 EST, Tablet, [facility]/pharmacy #[id number], Partial fill upon patient request if the [...]
--- OUTSIDE RECORDS SUMMARY | 2022-08-18 18:25 | XMS_ITS | Continuity of Care Document ---
Author Name Unknown Organization [facility] Address [address] [place] [address]- Care Team Providers Care Security Representative Name Role Phone Douglas SALINAS, Gin Zaragoza Primary Care Physician [place] [facility] [place] [facility] [address] [place] [address]- [facility] Attending Physician: Gutierrez Moon MD Admitting Physician: [...] Note: Pt states rec'd in December at [facility] 5Admin Note: VIS given Medications busPIRone 15 mg oral tablet 1 tablet = 15 mg, By Mouth, 3 times a day, # 90 tablet, 5 Refills, Maintenance, 03/27/19 8:49:38 EST, note dose change Start Date: 03/27/19 Status: Ordered capsaicin 0.025% topical cream 1 application, Topically, 2 times a day, # 45 Gm, 5 Refills, Maintenance, 06/09/19 9:17:00 EST, Cream, [facility]/pharmacy #[id number], 1 application Topically 2 times a day, 167, cm, 04/16/19 15:34:00 EST, Height Start Date: 06/09/19 Status: Ordered gabapentin 100 mg oral capsule 200 mg, 2, capsule, By Mouth, Daily at bedtime, # 60 capsule, Refills 5, Tot. Refills 5, Maintenance, 06/09/19 9:19:00 EST, Route to Pharmacy Electronically, [facility]/pharmacy #[id number], 167, cm, 04/16/19 15:34:00 EST, Height Start Date: 06/09/19 Status: Ordered gabapentin 300 mg oral capsule 300 mg, 1, capsule, By Mouth, Daily at bedtime, # 30 capsule, Refills 2, Tot. Refills 2, Maintenance, 04/16/19 16:03:00 EST, Route to Pharmacy Electronically, [facility]/pharmacy #[id number], increasing ode 04/16, 167, cm, 04/16/19 15:34:00 EST, Height Start Date: 04/16/19 Status: Ordered Lac-Hydrin 12% cream 1 application, Topically, 2 times a day, # 385 Gm, 11 Refills, Maintenance, 06/09/19 9:18:00 EST, Cream, [facility]/pharmacy #[id number], 1 application Topically 2 times [...] 2 Refills, Maintenance, 05/09/19 11:53:00 EST, Tablet, [facility]/pharmacy #[id number], 167, cm, 04/16/19 15:34:00 EST, [...]
--- OUTSIDE RECORDS SUMMARY | 2022-08-18 18:25 | XMS_ITS | Continuity of Care Document ---
Author Name Unknown Organization [facility] Address [address] [place] [address]- Care Team Providers Care Bleach Liquor Maker Name Role Phone Douglas SALINAS, Gin Zaragoza Primary Care Physician [phone] Encounter [facility] [place] Date(s): 03/20/19 - 04/24/[address] [address]- [facility] Attending Physician: Douglas SALINAS, Gin [...] 02/11/07 Given 1Admin Note: at outside clinic -[facility] - per patient 2Result Comment: [03/18/2013] flulaval 3Admin Note: vis given dated 10/29/11 4Admin Note: Pt states rec'd in December at [facility] 5Admin Note: VIS given Medications B-Plex Vitamin B Complex oral tablet 1 tablet, By Mouth, Daily, # 30 tablet, 11 Refills, Maintenance, 05/21/17 11:18:18, Tablet, 1 tablet By Mouth Daily Start Date: 05/21/17 Status: Ordered busPIRone 15 mg oral tablet 1 tablet = 15 mg, By Mouth, 3 times a day, # 90 tablet, 5 Refills, Maintenance, 03/27/19 8:49:38 EST, note dose change Start Date: 03/27/19 Status: Ordered capsaicin 0.025% topical cream 1 application, Topically, 2 times a day, # 45 Gm, 5 Refills, Maintenance, 04/03/18 14:37:46 EST, Cream, 1 application Topically 2 times a day Start Date: 04/03/18 Status: Ordered gabapentin 100 mg oral capsule 100 mg, 1, capsule, By Mouth, 2 times a day, # 60 capsule, Refills 2, Tot. Refills 2, Maintenance, 03/23/19 16:01:27 EST, Route to Pharmacy Electronically, [id number], [facility]/pharmacy #[id number] Start Date: 03/23/19 Status: Ordered gabapentin 300 mg oral capsule 300 mg, 1, capsule, By Mouth, Daily at bedtime, # 30 capsule, Refills 2, Tot. Refills 2, Maintenance, 04/16/19 16:03:00 EST, Route to Pharmacy Electronically, [facility]/pharmacy #[id number], increasing ode 04/16, 167, cm, 04/16/19 15:34:00 EST, Height Start Date: 04/16/19 Status: Ordered Lac-Hydrin 12% cream 1 application, Topically, 2 times a day, # 385 Gm, 11 Refills, Maintenance, 04/03/18 14:42:31 EST, Cream, 1 application Topically 2 times a day Start Date: 04/03/18 Status: Ordered promethazine 25 mg oral tablet [...] mg/day, # 100 tablet, 2 Refills, Maintenance, 03/24/18 10:35:14 EST, Tablet Start Date: 03/24/18 Status: Ordered venlafaxine 100 mg oral tablet See Instructions, # 60 tablet, Refills 5 Tot. Refills 5, TAKE 1 TABLET BY MOUTH TWICE A DAY, [facility]/pharmacy #[id number] Start Date: 01/01/19 Status: Ordered Vitamin D3 2000 intl units oral capsule 1 capsule = 2,000 International_Units, By Mouth, Daily, # 30 capsule, 5 Refills, Maintenance, 02/19/19 16:43:42 EDT Start Date: 02/19/19 Status: Ordered Voltaren 1% topical gel 1 application, Topically, 4 times a day, not to exceed 32 grams/day, # 100 Gm, 11 Refills, Maintenance, 04/03/18 14:47:56 EST, Gel, 1 application Topically 4 times a day,Instr:not to exceed 32 grams/day Start Date: 04/03/18 Status: Ordered Problem List Condition Effective Dates Status Health Status Inform ant Allergy disorder(Confirmed) Active Constipation(Confirmed) Active Fibromyalgia(Confirmed) Active Fracture of orbital floor, b low-out, closed(Confirmed) 1 Active Hemorrhoids(Confirmed) Active 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 Sex
--- OUTSIDE RECORDS SUMMARY | 2022-08-18 18:25 | XMS_ITS | Continuity of Care Document ---
Author Name Unknown Organization [facility] Address [address] [place] [phone]- Care Team Providers Care Accounting Clerks Supervisor Name Role Phone Douglas SALINAS, Gin Zaragoza Primary Care Physician [place] [facility] [place] Date(s): 03/09/19 - 10/11/[address] [address]- [facility] Discharge Disposition: A-D/C Home Attending Physician: Douglas SALINAS, Gin Zaragoza Admitting [...] Note: Pt states rec'd in December at [facility] 5Admin Note: VIS given Medications busPIRone 15 mg oral tablet 1 tablet = 15 mg, By Mouth, 3 times a day, # 90 tablet, 5 Refills, Maintenance, 03/27/19 8:49:38 EST, note dose change Start Date: 03/27/19 Status: Ordered capsaicin 0.025% topical cream 1 application, Topically, 2 times a day, # 45 Gm, 5 Refills, Maintenance, 06/09/19 9:17:00 EST, Cream, [facility]/pharmacy #[id number], 1 application Topically 2 times a day, 167, cm, 04/16/19 15:34:00 EST, Height Start Date: 06/09/19 Status: Ordered Lac-Hydrin 12% cream 1 application, Topically, 2 times a day, # 385 Gm, 11 Refills, Maintenance, 06/09/19 9:18:00 EST, Cream, [facility]/pharmacy #[id number], 1 application Topically 2 times a [...] tablet, 2 Refills, Maintenance, 09/17/19 14:28:00 EDT, [facility]/pharmacy #[id number], 167, cm, 07/02/19 18:35:00 EST, Height, [...] capsule, 5 Refills, Maintenance, 09/17/19 14:31:00 EDT, [facility]/pharmacy #[id number], 167, cm, 07/02/19 18:35:00 EST, Height, [...]
--- OUTSIDE RECORDS SUMMARY | 2022-08-18 18:25 | XMS_ITS | Continuity of Care Document ---
Author Name Unknown Organization [facility] Address [address] [place] [address]- Care Team Providers Care Food And Beverage Associate Name Role Phone Douglas SALINAS, Gin Zaragoza Primary Care Physician Encounter [facility] Date(s): 08/25/21 - 09/24/21 [facility] [address] [place] [id number] Allergies, Adverse Reactions, Alerts No [...] rec'd in December at [facility] 5Admin Note: VIS given Medications Blood [...] Maintenance, 09/06/21 20:40:00 EDT, [facility]/pharmacy #[id number], note dose change, 167, cm, 07/24/21 15:14:00 EDT, Height Start Date: 09/06/21 Status: Ordered diclofenac 1% topical gel See Instructions, APPLY TO AFFECTED AREA 4 TIMES A DAY, # 100 Gm, 0 Refills, [facility] [id number], 25, APPLY TO AFFECTED AREA 4 TIMES [...] Refills, 08/24/21 14:23:00 EDT, [facility]/pharmacy #[id number], 167, cm, 07/24/21 15:14:00 EDT, [...] Route to Pharmacy Electronically, [facility]/pharmacy #[id number], Partial fill upon patient request if the prescriptio... Start Date: 06/12/21 Stop Date: 06/19/21 Status: Ordered venlafaxine 100 mg oral tablet 1 tablet = 100 mg, By Mouth, 2 times a day, # 60 tablet, 5 Refills, Maintenance, 06/12/21 13:55:00 EST, Tablet, [facility]/pharmacy #[id number], Partial fill upon patient request [...]
--- OUTSIDE RECORDS SUMMARY | 2022-08-18 18:25 | XMS_ITS | Continuity of Care Document ---
Author Name Unknown Organization [facility] Adult Medicine Address [address] [place] [address]- Care Team Providers Care Measurement Technician Name Role Phone Douglas SALINAS, Gin Zaragoza Primary Care Physician Encounter [facility] Date(s): 07/05/21 - 08/04/21 [facility] Adult Medicine [address] [place], [place] [address] Attending Physician: Admtr, Majo Allergies, Adverse Reactions, [...] 02/11/07 Given 1Admin Note: at outside clinic -[facility] - per patient 2Result Comment: [03/18/2013] flulaval 3Admin Note: vis given dated 10/29/11 4Admin Note: Pt states rec'd in December at [facility] 5Admin Note: VIS given Medications Blood Pressure Monitor See Instructions, # 1 each, Maintenance, Dx: elevated BP reading without diagnosis of HTN, lightheadedness Check BP once daily, 07/01/20 8:53:00 EST, Supply Start Date: 07/01/20 Status: Ordered busPIRone 15 mg oral tablet 1 tablet = 15 mg, By Mouth, 3 times a day, # 90 tablet, 5 Refills, Maintenance, 11/01/20 14:39:00 EDT, [facility]/pharmacy #[id number], note dose change, 167, cm, 06/16/20 14:00:00 EST, Height, 89.8, kg, 07/01/2017:35:00 EST, Dry Weight Start Date: 11/01/20 Status: Ordered diclofenac 1% topical gel See Instructions, APPLY TO AFFECTED AREA 4 TIMES A DAY, # 100 Gm, 0 Refills, [facility] [id number], 25, APPLY TO AFFECTED AREA 4 TIMES [...] 14:13:00 EST, Route to Pharmacy Electronically, [facility]/pharmacy #[id number], Partial fill upon patient request if the prescriptio... Start Date: 06/12/21 Stop Date: 06/19/21 Status: Ordered venlafaxine 100 mg oral tablet 1 tablet = 100 mg, By Mouth, 2 times a day, # 60 tablet, 5 Refills, Maintenance, 06/12/21 13:55:00 EST, Tablet, [facility]/pharmacy #[id number], Partial fill upon patient request if the [...]
--- OUTSIDE RECORDS SUMMARY | 2022-08-18 18:25 | XMS_ITS | Continuity of Care Document ---
Author Name Unknown Organization [facility] Address [address] [place] [address]- Care Team Providers Care Forest Pathology Professor Name Role Phone Douglas SALINAS, Gin Zaragoza Primary Care Physician Encounter [facility] Date(s): 10/29/19 - 11/28/19 [facility] [address] [place] [address]- [facility] Allergies, Adverse Reactions, Alerts [...] 02/11/07 Given 1Admin Note: [facility] 2Result Comment: [03/18/2013] flulaval 3Admin Note: vis given dated 10/29/11 4Admin Note: Pt states rec'd in December at [facility] 5Admin Note: VIS given Medications busPIRone 15 mg oral tablet 1 tablet = 15 mg, By Mouth, 3 times a day, # 90 tablet, 5 Refills, Maintenance, 10/23/19 14:34:00 EDT, [facility]/pharmacy #[id number], note dose change, 167, cm, 10/23/19 13:35:00 EDT, Height, 89.8, kg, 07/01/2017:35:00 EST, Dry Weight Start Date: 10/23/19 Status: Ordered capsaicin 0.025% topical cream 1 application, Topically, 2 times a day, # 45 Gm, 5 Refills, Maintenance, 10/23/19 14:12:00 EDT, Cream, [facility]/pharmacy #[id number], 1 application Topically 2 times a [...] 10/23/19 14:15:00 EDT, [id number], cm, 10/23/19 13:35:00 EDT, Height, 89.8... Start Date: 10/23/19 Status: Ordered Lac-Hydrin 12% cream 1 application, Topically, 2 times a day, # 385 Gm, 11 Refills, Maintenance, 06/09/19 9:18:00 EST, Cream, [facility]/pharmacy #[id number], 1 application Topically 2 times a day, 167, cm, 04/16/19 15:34:00 EST, Height Start Date: 06/09/19 Status: Ordered omeprazole 20 mg oral enteric coated capsule 1 capsule = 20 mg, By Mouth, 2 times a day, # 60 capsule, 0 Refills, Maintenance, 10/23/19 14:17:00EDT, [facility]/pharmacy #[id number], 167, cm, 10/23/19 13:35:00 EDT, Height, 89.8, kg, 07/02/19 18:35:00 EST, Dry Weight Start Date: 10/23/19 Status: Ordered tiZANidine 2 mg oral tablet 2 mg, 1, tablet, By Mouth, 2 times a day, for muscle pains, # 60 tablet, Refills 0, Tot. Refills 0,Maintenance, 11/27/19 13:14:00 EDT, Route to Pharmacy Electronically, [facility]/pharmacy #[id number], 167, cm, 10/23/19 13:35:00 EDT, Height, 89.8, kg, 07/02/19 18... Start Date: 11/27/19 Status: Ordered topiramate 50 mg oral tablet 1 tablet = 50 mg, By Mouth, Daily at bedtime, # 30 tablet, 2 Refills, Maintenance, 10/12/19 10:13:00 EDT, [facility]/pharmacy #[id number], dose increase 10/12/19, 167, cm, 07/02/19 18:35:00 EST, Height, 89.8, kg, 07/02/19 18:35:00 EST, Dry Weight Start Date: 10/12/19 Status: Ordered Tylenol Extra Strength 500 mg oral tablet 2 tablet = 1,000 mg, By Mouth, 3 times a day, PRN for pain, not to exceed 3000 mg/day, # 100 tablet, 2 Refills, Maintenance, 11/05/19 14:33:00 EDT, Tablet, [facility]/pharmacy #[id number], 167, cm, 10/23/19 13:35:00 EDT, Height, 89.8, kg, 07/02/19 18:35:00 EST, Dr... Start Date: 11/05/19 Status: Ordered venlafaxine 100 mg oral tablet TAKE 1 TABLET BY MOUTH TWICE A DAY Start Date: 11/27/19 Status: Ordered Vitamin D3 2000 intl units oral capsule 1 capsule = 2,000 International_Units, By Mouth, Daily, # 30 capsule, 5 Refills, Maintenance, 09/17/19 14:31:00 EDT, [facility]/pharmacy #[id number], 167, cm, 07/02/19 18:35:00 EST, Height, [...]
--- OUTSIDE RECORDS SUMMARY | 2022-08-18 18:25 | XMS_ITS | Continuity of Care Document ---
Author Name Unknown Organization [facility] Address [address] [place] [address]- Care Team Providers Care Ribbon Cutter Name Role Phone Douglas PROP SAWYER, Gin Zaragoza Primary Care Physician [place] [facility] [place]19 [facility] [address] [place] [address]- [facility] Attending Physician: Not on Staff, Attending MD [...] Note: Pt states rec'd in December at [facility] 5Admin Note: VIS given Medications B-Plex Vitamin [...] 03/23/19 16:01:27 EST, Route to Pharmacy Electronically, [id number], [facility]/pharmacy #[id number] Start Date: 03/23/19 Status: Ordered gabapentin 300 mg oral capsule 300 mg, 1, capsule, By Mouth, Daily at bedtime, # 30 capsule, Refills 2, Tot. Refills 2, Maintenance, 04/16/19 16:03:00 EST, Route to Pharmacy Electronically, [facility]/pharmacy #[id number], increasing ode 04/16, 167, cm, 04/16/19 [...] 2 Refills, Maintenance, 05/09/19 11:53:00 EST, Tablet, [facility]/pharmacy #[id number], 167, cm, 04/16/19 15:34:00 EST, Height Start Date: 05/09/19 Status: Ordered venlafaxine 100 mg oral tablet See Instructions, # 60 tablet, Refills 5 Tot. Refills 5, TAKE 1 TABLET BY MOUTH TWICE A DAY, [facility]/pharmacy #[id number] Start Date: 01/01/19 Status: Ordered Vitamin [...]
--- OUTSIDE RECORDS SUMMARY | 2022-08-18 18:25 | XMS_ITS | Continuity of Care Document ---
Author Name Unknown Organization [facility] Address [address] [place] [address]- Care Team Providers Care Critical Care Specialist Name Role Phone Douglas SALINAS, Gin Zaragoza Primary Care Physician [phone] Encounter [facility] Date(s): 05/22/19 - 06/01/19 [facility] [address] [place] [address]- [facility] Attending Physician: Admtr, Majo Allergies, Adverse Reactions, [...] 02/11/07 Given 1Admin Note: at outside clinic -[facility] - per patient 2Result Comment: [03/18/2013] flulaval 3Admin Note: vis given dated 10/29/11 4Admin Note: Pt states rec'd in December at [facility] 5Admin Note: VIS given Medications [...] 03/23/19 16:01:27 EST, Route to Pharmacy Electronically, [id number], [facility]/pharmacy #[id number] Start Date: 03/23/19 Status: Ordered gabapentin 300 mg oral capsule 300 mg, 1, capsule, By Mouth, Daily at bedtime, # 30 capsule, Refills 2, Tot. Refills 2, Maintenance, 04/16/19 16:03:00 EST, Route to Pharmacy Electronically, [facility]/pharmacy #[id number], increasing ode 04/16, 167, [...] 2 Refills, Maintenance, 05/09/19 11:53:00 EST, Tablet, [facility]/pharmacy #[id number], 167, cm, 04/16/19 15:34:00 EST, Height Start Date: 05/09/19 Status: Ordered venlafaxine 100 mg oral tablet See Instructions, # 60 tablet, Refills 5 Tot. Refills 5, TAKE 1 TABLET BY MOUTH TWICE A DAY, [facility]/pharmacy #[id number] Start Date: 01/01/19 Status: [...]
--- OUTSIDE RECORDS SUMMARY | 2022-08-18 18:25 | XMS_ITS | Continuity of Care Document ---
Author Name Unknown Organization [facility] Address [address] [place] [address]- Care Team Providers Care Jeep Driver Name Role Phone Douglas SALINAS, Gin Zaragoza Primary Care Physician Encounter [facility] [place] Date(s): 12/04/21 - 01/24/22 [facility] [address] [place] [address]- Attending Physician: Not on Staff, Attending MD [...] Given 1Admin Note: at outside clinic -[facility] - per patient 2Result Comment: [03/18/2013] flulaval 3Admin Note: vis given dated 10/29/11 4Admin Note: Pt states rec'd in December at [facility] 5Admin Note: VIS given Medications Blood Pressure Monitor See Instructions, # 1 each, Maintenance, Dx: elevated BP reading without diagnosis of HTN, lightheadedness Check BP once daily, 07/01/20 8:53:00 EST, Supply Start Date: 07/01/20 Status: Ordered busPIRone 15 mg oral tablet 1 tablet = 15 mg, By Mouth, 3 times a day, # 90 tablet, 5 Refills, Maintenance, 09/06/21 20:40:00 EDT, [facility]/pharmacy #[id number], note dose change, 167, cm, 07/24/21 15:14:00 EDT, Height Start Date: 09/06/21 Status: Ordered clindamycin 1% topical solution 1 application, Topically, 2 times a day, # 60 mL, 0 Refills, Maintenance, 11/23/21 16:41:00 EDT, Solution, [facility]/pharmacy #[id number], Partial fill upon patient request if the prescription is for a schedule II opioid drug., 1 application Topically 2 times a d... Start Date: 11/23/21 Status: Ordered diclofenac 1% topical gel See Instructions, APPLY TO AFFECTED AREA 4 TIMES A DAY, # 100 Gm, 0 Refills, [facility] [id number], 25, APPLY TO AFFECTED AREA 4 TIMES [...] Replace Required Details, Route to Pharmacy Electronically, [facility] [id number], 167, cm, 09/18/21 9:00:00 EDT, Height Start Date: 10/04/21 Status: Ordered meclizine 12.5 mg oral tablet 1 tablet = 12.5 mg, By Mouth, 3 times a day, TAKE 1 TABLET BY MOUTH THREE TIMES A DAY NEEDED FORDIZZINESS, # 40 tablet, 1 Refills, 08/24/21 14:23:00 EDT, [facility]/pharmacy #[id number], 167, cm, 07/24/21 15:14:00 EDT, Height [...] EST, Route to Pharmacy Electronically, [facility]/pharmacy #[id number], Partial fill upon patient request if the prescriptio... Start Date: 06/12/21 Stop Date: 06/19/21 Status: Ordered venlafaxine 100 mg oral tablet 1 tablet, By Mouth, 2 times a day, # 60 tablet, 2 Refills, [id number], 167, cm, 11/23/21 16:00:00 EDT, Height Start Date: 12/04/21 Status: Ordered Problem List Condition Confirmation Course Effective Dates Status [facility] Informant Allergy disorder Confirmed Active Anal [...] Personnel Name: Gin Cole NP Address: Address: [address] [place] [address] [place], [place] [address]
--- OUTSIDE RECORDS SUMMARY | 2022-08-18 18:25 | XMS_ITS | Continuity of Care Document ---
Author Name Unknown Organization [facility] Address [address] [place] [address]- Care Team Providers Care Men'S Swim Coach Name Role Phone Douglas SALINAS, Gin Zaragoza Primary Care Physician Encounter [facility] [place] Date(s): 09/07/19 - 09/14/19 [facility] [address] [place] [address]- [facility] Attending Physician: Douglas SALINAS, Gin Zaragoza Allergies, [...] 02/11/07 Given 1Admin Note: at outside clinic -[facility] - per patient 2Result Comment: [03/18/2013] flulaval 3Admin Note: vis given dated 10/29/11 4Admin Note: Pt states rec'd in December at [facility] 5Admin Note: VIS given Medications busPIRone 15 mg oral tablet 1 tablet = 15 mg, By Mouth, 3 times a day, # 90 tablet, 5 Refills, Maintenance, 03/27/19 8:49:38 EST, note dose change Start Date: 03/27/19 Status: Ordered capsaicin 0.025% topical cream 1 application, Topically, 2 times a day, # 45 Gm, 5 Refills, Maintenance, 06/09/19 9:17:00 EST, Cream, [facility]/pharmacy #[id number], 1 application Topically 2 times a day, 167, cm, 04/16/19 15:34:00 EST, Height Start Date: 06/09/19 Status: Ordered gabapentin 100 mg oral capsule 200 mg, 2, capsule, By Mouth, Daily at bedtime, # 60 capsule, Refills 5, Tot. Refills 5, Maintenance, 06/09/19 9:19:00 EST, Route to Pharmacy Electronically, [facility]/pharmacy #[id number], 167, cm, 04/16/19 15:34:00 EST, Height Start Date: 06/09/19 Status: Ordered gabapentin 300 mg oral capsule 300 mg, 1, capsule, By Mouth, Daily at bedtime, # 30 capsule, Refills 2, Tot. Refills 2, Maintenance, 04/16/19 16:03:00 EST, [id number] increasing ode 04/16, 167, cm, 04/16/19 15:34:00 EST, Height Start Date: 04/16/19 Status: Ordered Lac-Hydrin 12% cream 1 application, Topically, 2 times a day, # 385 Gm, 11 Refills, Maintenance, 06/09/19 9:18:00 EST, Cream, [facility]/pharmacy #[id number], 1 application Topically 2 times [...] Refills, Maintenance, 06/25/19 8:35:00 EST, Tablet, [facility]/pharmacy #[id number], 167, cm, 06/09/19 9:20:00 EST, Height Start Date: 06/25/19 Status: Ordered venlafaxine 100 mg oral tablet 1 tablet = 100 mg, By Mouth, 2 times a day, # 180 tablet, 3 Refills, Soft Stop, 06/09/19 9:18:00 EST, [facility]/pharmacy #[id number], 167, cm, 04/16/19 15:34:00 EST, [...] 11 Refills, Maintenance, 06/09/19 9:18:00 EST, Gel, [facility]/pharmacy #[id number], 1 application Topically 4 times a [...]
--- OUTSIDE RECORDS SUMMARY | 2022-08-18 18:25 | XMS_ITS | Continuity of Care Document ---
Author Name Unknown Organization [facility] Address [address] [place] [address]- Care Team Providers Care Document Processing Specialist Name Role Phone Douglas SALINAS, Gin Zaragoza Primary Care Physician [phone] Encounter [facility] [place] Date(s): 08/31/19 - 09/07/19 [facility] [address] [place] [address]- [facility] Attending Physician: Douglas SALINAS, Gin Zaragoza Allergies, [...] 02/11/07 Given 1Admin Note: at outside clinic -[facility] - per patient 2Result Comment: [03/18/2013] flulaval 3Admin Note: vis given dated 10/29/11 4Admin Note: Pt states rec'd in December at [facility] 5Admin Note: VIS given Medications busPIRone 15 mg oral tablet 1 tablet = 15 mg, By Mouth, 3 times a day, # 90 tablet, 5 Refills, Maintenance, 03/27/19 8:49:38 EST, note dose change Start Date: 03/27/19 Status: Ordered capsaicin 0.025% topical cream 1 application, Topically, 2 times a day, # 45 Gm, 5 Refills, Maintenance, 06/09/19 9:17:00 EST, Cream, [facility]/pharmacy #[id number], 1 application Topically 2 times a day, 167, cm, 04/16/19 15:34:00 EST, Height Start Date: 06/09/19 Status: Ordered gabapentin 100 mg oral capsule 200 mg, 2, capsule, By Mouth, Daily at bedtime, # 60 capsule, Refills 5, Tot. Refills 5, Maintenance, 06/09/19 9:19:00 EST, Route to Pharmacy Electronically, [facility]/pharmacy #[id number], 167, cm, 04/16/19 15:34:00 EST, Height Start Date: 06/09/19 Status: Ordered gabapentin 300 mg oral capsule 300 mg, 1, capsule, By Mouth, Daily at bedtime, # 30 capsule, Refills 2, Tot. Refills 2, Maintenance, 04/16/19 16:03:00 EST, [id number] increasing ode 04/16, 167, cm, 04/16/19 15:34:00 EST, Height Start Date: 04/16/19 Status: Ordered Lac-Hydrin 12% cream 1 application, Topically, 2 times a day, # 385 Gm, 11 Refills, Maintenance, 06/09/19 9:18:00 EST, Cream, [facility]/pharmacy #[id number], 1 application Topically 2 times a [...] 2 Refills, Maintenance, 06/25/19 8:35:00 EST, Tablet, [facility]/pharmacy #[id number], 167, cm, 06/09/19 9:20:00 EST, Height [...]
--- OUTSIDE RECORDS SUMMARY | 2022-08-18 18:25 | XMS_ITS | Continuity of Care Document ---
Author Name Unknown Organization [facility] Address [address] [place] [address]- Care Team Providers Care Cake Puller Name Role Phone Douglas SALINAS, Gin Zaragoza Primary Care Physician [phone] Encounter [facility] Date(s): 10/13/19 - 11/25/19 [facility] [address] [place] [address]- [facility] Attending Physician: Not on Staff, Attending MD [...] 02/11/07 Given 1Admin Note: at outside clinic -[facility] - per patient 2Result Comment: [03/18/2013] flulaval 3Admin Note: vis given dated 10/29/11 4Admin Note: Pt states rec'd in December at [facility] 5Admin Note: VIS given Medications busPIRone 15 mg oral tablet 1 tablet = 15 mg, By Mouth, 3 times a day, # 90 tablet, 5 Refills, Maintenance, 10/23/19 14:34:00 EDT, [facility]/pharmacy #[id number], note dose change, 167, cm, 10/23/19 13:35:00 EDT, Height, 89.8, kg, 07/01/2017:35:00 EST, Dry Weight Start Date: 10/23/19 Status: Ordered capsaicin 0.025% topical cream 1 application, Topically, 2 times a day, # 45 Gm, 5 Refills, Maintenance, 10/23/19 14:12:00 EDT, Cream, [facility]/pharmacy #[id number], 1 application Topically 2 times a day, 167, cm, 10/23/19 13:35:00 EDT, Height, 89.8, kg, 07/02/19 18:35:00 EST, Dry Weight Start Date: 10/23/19 Status: Ordered FLUoxetine 40 mg oral capsule 1 capsule = 40 mg, By Mouth, Daily, # 90 capsule, 3 Refills, Maintenance, 10/23/19 14:14:00 EDT, Capsule, [id number], cancel Venlafaxine, 167, cm, 10/23/19 13:35:00 EDT, Height, 89.8, kg, 07/02/19 18:35:00 EST, Dry Weight Start Date: 10/23/19 Status: Ordered ibuprofen 800 mg oral tablet 800 mg, 1, tablet, By Mouth, 3 times a day, try to limit to 6 tabs per week, # 90 tablet, Refills 1, Tot. Refills 1, Maintenance, 10/23/19 14:15:00 EDT, Route to Pharmacy Electronically, [facility]/pharmacy#[id number], 167, cm, 10/23/19 13:35:00 EDT, Height, 89.8... Start Date: 10/23/19 Status: Ordered Lac-Hydrin 12% cream 1 application, Topically, 2 times a day, # 385 Gm, 11 Refills, Maintenance, 06/09/19 9:18:00 EST, Cream, [id number], 1 application Topically 2 times a day, 167, cm, 04/16/19 15:34:00 EST, Height Start Date: 06/09/19 Status: Ordered omeprazole 20 mg oral enteric coated capsule 1 capsule = 20 mg, By Mouth, 2 times a day, # 60 capsule, 0 Refills, Maintenance, 10/23/19 14:17:00EDT, [id number], 167, cm, 10/23/19 13:35:00 EDT, Height, 89.8, kg, 07/02/19 18:35:00 EST, Dry Weight Start Date: 10/23/19 Status: Ordered topiramate 50 mg oral tablet 1 tablet = 50 mg, By Mouth, Daily at bedtime, # 30 tablet, 2 Refills, Maintenance, 10/12/19 10:13:00 EDT, [facility]/pharmacy #[id number], dose increase 10/12/19, 167, cm, 07/02/19 18:35:00 EST, Height, 89.8, kg, 07/02/19 18:35:00 EST, Dry Weight Start Date: 10/12/19 Status: Ordered Tylenol Extra Strength 500 mg oral tablet 2 tablet = 1,000 mg, By Mouth, 3 times a day, PRN for pain, not to exceed 3000 mg/day, # 100 tablet, 2 Refills, Maintenance, 11/05/19 14:33:00 EDT, Tablet, [facility]/pharmacy #[id number], 167, cm, 10/23/19 13:35:00 EDT, Height, 89.8, kg, 07/02/19 18:35:00 EST, DrEric.. Start Date: 11/05/19 Status: Ordered Vitamin D3 2000 intl units oral capsule 1 capsule = 2,000 International_Units, By Mouth, Daily, # 30 capsule, 5 Refills, Maintenance, 09/17/19 14:31:00 EDT, [facility]/pharmacy #[id number], 167, cm, 07/02/19 18:35:00 [...]
--- OUTSIDE RECORDS SUMMARY | 2022-08-18 18:25 | XMS_ITS | Continuity of Care Document ---
Author Name Unknown Organization [facility] Address [address] [place] [address]- Care Team Providers Care Lighting Fixtures Decorator Name Role Phone Douglas SALINAS, Gin Zaragoza Primary Care Physician [phone] [place] [facility] [place]11[place] - 06/24/19 [facility] [address] [place] [address]- [facility] Attending Physician: Not on Staff, Attending [...] 02/11/07 Given 1Admin Note: at outside clinic -[facility] - per patient 2Result Comment: [03/18/2013] flulaval 3Admin Note: vis given dated 10/29/11 4Admin Note: Pt states rec'd in December at [facility] 5Admin Note: VIS given Medications busPIRone 15 mg oral tablet 1 tablet = 15 mg, By Mouth, 3 times a day, # 90 tablet, 5 Refills, Maintenance, 03/27/19 8:49:38 EST, note dose change Start Date: 03/27/19 Status: Ordered capsaicin 0.025% topical cream 1 application, Topically, 2 times a day, # 45 Gm, 5 Refills, Maintenance, 06/09/19 9:17:00 EST, Cream, [facility]/pharmacy #[id number], 1 application Topically 2 times a day, 167, cm, 04/16/19 15:34:00 EST, Height Start Date: 06/09/19 Status: Ordered gabapentin 100 mg oral capsule 200 mg, 2, capsule, By Mouth, Daily at bedtime, # 60 capsule, Refills 5, Tot. Refills 5, Maintenance, 06/09/19 9:19:00 EST, Route to Pharmacy Electronically, [facility]/pharmacy #[id number], 167, cm, 04/16/19 15:34:00 EST, Height Start Date: 06/09/19 Status: Ordered gabapentin 300 mg oral capsule 300 mg, 1, capsule, By Mouth, Daily at bedtime, # 30 capsule, Refills 2, Tot. Refills 2, Maintenance, 04/16/19 16:03:00 EST, [id number] increasing ode 04/16, 167, cm, 04/16/19 15:34:00 EST, Height Start Date: 04/16/19 Status: Ordered Lac-Hydrin 12% cream 1 application, Topically, 2 times a day, # 385 Gm, 11 Refills, Maintenance, 06/09/19 9:18:00 EST, Cream, [facility]/pharmacy #[id number], 1 application Topically 2 times [...] 2 Refills, Maintenance, 05/09/19 11:53:00 EST, Tablet, [facility]/pharmacy #[id number], 167, cm, 04/16/19 15:34:00 EST, [...] 11 Refills, Maintenance, 06/09/19 9:18:00 EST, Gel, [facility]/pharmacy #[id number], 1 application Topically 4 times [...]
--- OUTSIDE RECORDS SUMMARY | 2022-08-18 18:26 | XMS_ITS | Continuity of Care Document ---
Author Name Unknown Organization [facility] Address [address] [place] [address]- Care Team Providers Care Track Service Person Name Role Phone Douglas FUNERAL COUNSELOR, Gin Zaragoza Primary Care Physician [phone] Encounter [facility] Date(s): 09/13/21 - 10/13/21 [facility] [address] [place], [place] [address] Allergies, Adverse Reactions, Alerts No [...] 02/11/07 Given 1Admin Note: at outside clinic -[facility] - per patient 2Result Comment: [03/18/2013] flulaval 3Admin Note: vis given dated 10/29/11 4Admin Note: Pt states rec'd in December at [facility] 5Admin Note: VIS given Medications Blood Pressure Monitor See Instructions, # 1 each, Maintenance, Dx: elevated BP reading without diagnosis of HTN, lightheadedness Check BP once daily, 07/01/20 8:53:00 EST, Supply Start Date: 07/01/20 Status: Ordered busPIRone 15 mg oral tablet 1 tablet = 15 mg, By Mouth, 3 times a day, # 90 tablet, 5 Refills, Maintenance, 09/06/21 20:40:00 EDT, [facility]/pharmacy #[id number], note dose change, 167, cm, 07/24/21 15:14:00 EDT, Height Start Date: 09/06/21 Status: Ordered diclofenac 1% topical gel See Instructions, APPLY TO AFFECTED AREA 4 TIMES A DAY, # 100 Gm, 0 Refills, [id number], 25, APPLY TO AFFECTED AREA 4 TIMES [...] Replace Required Details, Route to Pharmacy Electronically, [id number], 167, cm, 09/18/21 9:00:00 EDT, Height Start Date: 10/04/21 Status: Ordered meclizine 12.5 mg oral tablet 1 tablet = 12.5 mg, By Mouth, 3 times a day, TAKE 1 TABLET BY MOUTH THREE TIMES A DAY NEEDED FORDIZZINESS, # 40 tablet, 1 Refills, 08/24/21 14:23:00 EDT, [facility]/pharmacy #[id number], 167, cm, 07/24/21 15:14:00 EDT, Height [...] 14:13:00 EST, Route to Pharmacy Electronically, [facility]/pharmacy #[id number], Partial fill upon patient request if the prescriptio... Start Date: 06/12/21 Stop Date: 06/19/21 Status: Ordered venlafaxine 100 mg oral tablet 1 tablet = 100 mg, By Mouth, 2 times a day, # 60 tablet, 5 Refills, Maintenance, 06/12/21 13:55:00 EST, Tablet, [facility]/pharmacy #[id number], Partial fill upon patient request if [...] Active Vitamin D deficiency(Confirmed) Active 1Right side Vital Signs Most recent to oldest [Reference Range]: 1 Height 167 cm (09/18/21 9:00 AM) Weight 92.2 kg (09/18/21 9:00 AM) Social History Social History Type Response Tobacco Other: PT STATES BASSAM T 2015. Sex
--- OUTSIDE RECORDS SUMMARY | 2022-08-18 18:26 | XMS_ITS | Continuity of Care Document ---
Author Name Unknown Organization [facility] Address [address] [place] [address]- Care Team Providers Care Special Education Secretary Name Role Phone Douglas AIRPLANE TECHNICIAN, Gin Zaragoza Primary Care Physician [phone] [place] [facility] [place](s): 06/09/19 - 08/20/19 [facility] [address] [place] [address]- [facility] Attending Physician: Gracie Childers DO Admitting Physician: Gracie Childers DO Allergies, Adverse Reactions, Alerts No Known Medication [...] Note: Pt states rec'd in December at [facility] 5Admin Note: VIS given Medications busPIRone 15 mg oral tablet 1 tablet = 15 mg, By Mouth, 3 times a day, # 90 tablet, 5 Refills, Maintenance, 03/27/19 8:49:38 EST, note dose change Start Date: 03/27/19 Status: Ordered capsaicin 0.025% topical cream 1 application, Topically, 2 times a day, # 45 Gm, 5 Refills, Maintenance, 06/09/19 9:17:00 EST, Cream, [facility]/pharmacy #[id number], 1 application Topically 2 times a day, 167, cm, 04/16/19 15:34:00 EST, Height Start Date: 06/09/19 Status: Ordered gabapentin 100 mg oral capsule 200 mg, 2, capsule, By Mouth, Daily at bedtime, # 60 capsule, Refills 5, Tot. Refills 5, Maintenance, 06/09/19 9:19:00 EST, Route to Pharmacy Electronically, [facility]/pharmacy #[id number], 167, cm, 04/16/19 15:34:00 EST, Height Start Date: 06/09/19 Status: Ordered gabapentin 300 mg oral capsule 300 mg, 1, capsule, By Mouth, Daily at bedtime, # 30 capsule, Refills 2, Tot. Refills 2, Maintenance, 04/16/19 16:03:00 EST, Route to Pharmacy Electronically, [facility]/pharmacy #[id number], increasing ode 04/16, 167, cm, 04/16/19 15:34:00 EST, Height Start Date: 04/16/19 Status: Ordered Lac-Hydrin 12% cream 1 application, Topically, 2 times a day, # 385 Gm, 11 Refills, Maintenance, 06/09/19 9:18:00 EST, Cream, [facility]/pharmacy #[id number], 1 application Topically 2 times [...] 2 Refills, Maintenance, 06/25/19 8:35:00 EST, Tablet, [facility]/pharmacy #[id number], 167, cm, 06/09/19 9:20:00 EST, [...]
--- OUTSIDE RECORDS SUMMARY | 2022-08-18 18:26 | XMS_ITS | Continuity of Care Document ---
Author Name Unknown Organization [facility] Address [address] [place] [address]- Care Team Providers Care Project Development Leader Name Role Phone Douglas SALINAS, Gin Zaragoza Primary Care Physician Encounter [facility] [place] Date(s): 12/25/21 - 01/27/22 [facility] [address] [place] [address]- Attending Physician: Not on Staff, Attending MD [...] Note: Pt states rec'd in December at [facility] 5Admin Note: VIS given Medications Blood Pressure Monitor See Instructions, # 1 each, Maintenance, Dx: elevated BP reading without diagnosis of HTN, lightheadedness Check BP once daily, 07/01/20 8:53:00 EST, Supply Start Date: 07/01/20 Status: Ordered busPIRone 15 mg oral tablet 1 tablet = 15 mg, By Mouth, 3 times a day, # 90 tablet, 5 Refills, Maintenance, 09/06/21 20:40:00 EDT, [facility]/pharmacy #[id number], note dose change, 167, cm, 07/24/21 15:14:00 EDT, Height Start Date: 09/06/21 Status: Ordered clindamycin 1% topical solution 1 application, Topically, 2 times a day, # 60 mL, 0 Refills, Maintenance, 11/23/21 16:41:00 EDT, Solution, [facility]/pharmacy #[id number], Partial fill upon patient request if the prescription is for a schedule II opioid drug., 1 application Topically 2 times a d... Start Date: 11/23/21 Status: Ordered diclofenac 1% topical gel See Instructions, APPLY TO AFFECTED AREA 4 TIMES A DAY, # 100 Gm, 0 Refills, [id number], 25, APPLY TO AFFECTED AREA 4 TIMES [...] Replace Required Details, Route to Pharmacy Electronically, [id number], 167, cm, 09/18/21 9:00:00 EDT, Height Start Date: 10/04/21 Status: Ordered meclizine 12.5 mg oral tablet 1 tablet = 12.5 mg, By Mouth, 3 times a day, TAKE 1 TABLET BY MOUTH THREE TIMES A DAY NEEDED FORDIZZINESS, # 40 tablet, 1 Refills, 08/24/21 14:23:00 EDT, [facility]/pharmacy #[id number], 167, cm, 07/24/21 15:14:00 EDT, [...] 06/12/21 14:13:00 EST, Route to Pharmacy Electronically, [facility]/pharmacy #[id number], Partial fill upon patient request if the prescriptio... Start Date: 06/12/21 Stop Date: 06/19/21 Status: Ordered venlafaxine 100 mg oral tablet 1 tablet, By Mouth, 2 times a day, # 60 tablet, 2 Refills, [facility] STORE [id number], 167, cm, 11/23/21 16:00:00 EDT, Height Start Date: 12/04/21 Status: Ordered Problem List Condition Confirmation Course Effective Dates Status [facility] atus Informant Allergy disorder Confirmed Active [...] Personnel Name: Gin Cole NP Address: Address: [address] [place] [address] [place], [place] [address]
--- OUTSIDE RECORDS SUMMARY | 2022-08-18 18:26 | XMS_ITS | Continuity of Care Document ---
Author Name Unknown Organization [facility] Address [address] [place] [address]- Care Team Providers Care Hearing Instrument Specialist Name Role Phone Douglas SALINAS, Gin Zaragoza Primary Care Physician [phone] Encounter [facility] [place] Date(s): 11/03/19 - 12/03/[address] [address]- [facility] Attending Physician: Majo Brito Admitting Physician: AdmtrMajo Referring Physician: Admtr, ArRenard Allergies, Adverse Reactions, Alerts No Known Medication [...] Note: Pt states rec'd in December at [facility] 5Admin Note: VIS given Medications busPIRone 15 mg oral tablet 1 tablet = 15 mg, By Mouth, 3 times a day, # 90 tablet, 5 Refills, Maintenance, 10/23/19 14:34:00 EDT, [id number], note dose change, 167, cm, 10/23/19 13:35:00 EDT, Height, 89.8, kg, 07/01/2017:35:00 EST, Dry Weight Start Date: 10/23/19 Status: Ordered capsaicin 0.025% topical cream 1 application, Topically, 2 times a day, # 45 Gm, 5 Refills, Maintenance, 10/23/19 14:12:00 EDT, Cream, [facility]/pharmacy #[id number], 1 application Topically 2 [...] 10/23/19 14:15:00 EDT, [id number], cm, 10/23/19 13:35:00 EDT, Height, 89.8... Start Date: 10/23/19 Status: Ordered Lac-Hydrin 12% cream 1 application, Topically, 2 times a day, # 385 Gm, 11 Refills, Maintenance, 06/09/19 9:18:00 EST, Cream, [facility]/pharmacy #[id number], 1 application Topically 2 times a day, 167, cm, 04/16/19 15:34:00 EST, Height Start Date: 06/09/19 Status: Ordered omeprazole 20 mg oral enteric coated capsule 1 capsule = 20 mg, By Mouth, 2 times a day, # 60 capsule, 0 Refills, Maintenance, 10/23/19 14:17:00EDT, [facility]/pharmacy #[id number], 167, cm, 10/23/19 13:35:00 EDT, Height, 89.8, kg, 07/02/19 18:35:00 EST, Dry Weight Start Date: 10/23/19 Status: Ordered tiZANidine 2 mg oral tablet 2 mg, 1, tablet, By Mouth, 2 times a day, for muscle pains, # 60 tablet, Refills 0, Tot. Refills 0,Maintenance, 11/27/19 13:14:00 EDT, Route to Pharmacy Electronically, [facility]/pharmacy #[id number], 167, cm, 10/23/19 13:35:00 EDT, Height, 89.8, kg, 07/02/19 18... Start Date: 11/27/19 Status: Ordered topiramate 50 mg oral tablet 1 tablet = 50 mg, By Mouth, Daily at bedtime, # 30 tablet, 2 Refills, Maintenance, 10/12/19 10:13:00 EDT, [facility]/pharmacy #[id number], dose increase 10/12/19, 167, cm, 07/02/19 18:35:00 EST, Height, 89.8, kg, 07/02/19 18:35:00 EST, Dry Weight Start Date: 10/12/19 Status: Ordered Tylenol Extra Strength 500 mg oral tablet 2 tablet = 1,000 mg, By Mouth, 3 times a day, PRN for pain, not to exceed 3000 mg/day, # 100 tablet, 2 Refills, Maintenance, 11/05/19 14:33:00 EDT, Tablet, [facility]/pharmacy #[id number], 167, cm, 10/23/19 13:35:00 EDT, Height, 89.8, kg, 07/02/19 18:35:00 EST, Dr... Start Date: 11/05/19 Status: Ordered venlafaxine 100 mg oral tablet TAKE 1 TABLET BY MOUTH TWICE A DAY Start Date: 11/27/19 Status: Ordered Vitamin D3 2000 intl units oral capsule 1 capsule = 2,000 International_Units, By Mouth, Daily, # 30 capsule, 5 Refills, Maintenance, 09/17/19 14:31:00 EDT, [facility]/pharmacy #[id number], 167, cm, 07/02/19 18:35:00 [...]
--- OUTSIDE RECORDS SUMMARY | 2022-08-18 18:26 | XMS_ITS | Continuity of Care Document ---
Author Name Unknown Organization [facility] Address [address] [place] [address]- Care Team Providers Care Distributor Sales Manager Name Role Phone Douglas SALINAS, Gin Zaragoza Primary Care Physician Encounter [facility] Date(s): 08/22/21 - 09/21/21 [facility] [address] [place] [id number] Allergies, Adverse Reactions, Alerts No Known [...] Note: Pt states rec'd in December at [facility] 5Admin Note: VIS given Medications Blood Pressure Monitor See Instructions, # 1 each, Maintenance, Dx: elevated BP reading without diagnosis of HTN, lightheadedness Check BP once daily, 07/01/20 8:53:00 EST, Supply Start Date: 07/01/20 Status: Ordered busPIRone 15 mg oral tablet 1 tablet = 15 mg, By Mouth, 3 times a day, # 90 tablet, 5 Refills, Maintenance, 09/06/21 20:40:00 EDT, [facility]/pharmacy #[id number], note dose change, 167, cm, 07/24/21 15:14:00 EDT, Height Start Date: 09/06/21 Status: Ordered diclofenac 1% topical gel See Instructions, APPLY TO AFFECTED AREA 4 TIMES A DAY, # 100 Gm, 0 Refills, [facility] STORE [id number], 25, APPLY TO AFFECTED AREA 4 TIMES A DAY, 167, cm, 05/10/21 14:43:00 EST, Height, 89.8, kg, 07/02/19 18:35:00 EST, Dry Weight Start Date: 05/28/21 Status: Ordered meclizine 12.5 mg oral tablet 1 tablet = 12.5 mg, By Mouth, 3 times a day, TAKE 1 TABLET BY MOUTH THREE TIMES A DAY NEEDED FORDIZZINESS, # 40 tablet, 1 Refills, 08/24/21 14:23:00 EDT, [facility]/pharmacy #[id number], 167, cm, 07/24/21 15:14:00 EDT, [...] 06/12/21 14:13:00 EST, Route to Pharmacy Electronically, [facility]/pharmacy #[id number], Partial fill upon patient request if the prescriptio... Start Date: 06/12/21 Stop Date: 06/19/21 Status: Ordered venlafaxine 100 mg oral tablet 1 tablet = 100 mg, By Mouth, 2 times a day, # 60 tablet, 5 Refills, Maintenance, 06/12/21 13:55:00 EST, Tablet, [facility]/pharmacy #[id number], Partial fill upon patient request [...]
--- OUTSIDE RECORDS SUMMARY | 2022-08-18 18:26 | XMS_ITS | Continuity of Care Document ---
Author Name Unknown Organization [facility] Address [address] [place] [address]- Care Team Providers Care Rn Home Health Name Role Phone Douglas SALINAS, Gin Zaragoza Primary Care Physician Encounter [facility] Date(s): 09/13/21 - 10/13/21 [facility] [address] [place], [place] [address] Allergies, Adverse Reactions, Alerts No [...] 02/11/07 Given 1Admin Note: at outside clinic -[facility] - per patient 2Result Comment: [03/18/2013] flulaval 3Admin Note: vis given dated 10/29/11 4Admin Note: Pt states rec'd in December at [facility] 5Admin Note: VIS given Medications Blood Pressure Monitor See Instructions, # 1 each, Maintenance, Dx: elevated BP reading without diagnosis of HTN, lightheadedness Check BP once daily, 07/01/20 8:53:00 EST, Supply Start Date: 07/01/20 Status: Ordered busPIRone 15 mg oral tablet 1 tablet = 15 mg, By Mouth, 3 times a day, # 90 tablet, 5 Refills, Maintenance, 09/06/21 20:40:00 EDT, [facility]/pharmacy #[id number], note dose change, 167, cm, 07/24/21 15:14:00 EDT, Height Start Date: 09/06/21 Status: Ordered diclofenac 1% topical gel See Instructions, APPLY TO AFFECTED AREA 4 TIMES A DAY, # 100 Gm, 0 Refills, [id number], 25, APPLY TO AFFECTED AREA 4 TIMES [...] Replace Required Details, Route to Pharmacy Electronically, [facility] [id number], 167, cm, 09/18/21 9:00:00 EDT, Height Start Date: 10/04/21 Status: Ordered meclizine 12.5 mg oral tablet 1 tablet = 12.5 mg, By Mouth, 3 times a day, TAKE 1 TABLET BY MOUTH THREE TIMES A DAY NEEDED FORDIZZINESS, # 40 tablet, 1 Refills, 08/24/21 14:23:00 EDT, [facility]/pharmacy #[id number], 167, cm, 07/24/21 15:14:00 EDT, Height [...] 06/12/21 14:13:00 EST, Route to Pharmacy Electronically, [facility]/pharmacy #[id number], Partial fill upon patient request if the prescriptio... Start Date: 06/12/21 Stop Date: 06/19/21 Status: Ordered venlafaxine 100 mg oral tablet 1 tablet = 100 mg, By Mouth, 2 times a day, # 60 tablet, 5 Refills, Maintenance, 06/12/21 13:55:00 EST, Tablet, [facility]/pharmacy #[id number], Partial fill upon patient request if [...]
--- NOTE | 2022-08-18 19:30 | ED_ITS ---
HPI - General Adult General Chief complaint: Skin/Abscess/Foreign Body Stated complaint: lump under R arm, growing in size Time Seen by Provider: 08/18/22 18:32 Source: patient Mode of arrival: ambulatory Limitations: no limitations History of Present Illness HPI narrative: 47-year-old female presents to ED for a lump on the right arm after shaving. Patient states she has had this before in the past. Patient denies any upper right arm ext extremity swelling or redness. Patient states no fever or chills. Patient states no other complaints Related Data Previous Rx's Medication Instructions Recorded cephalexin 500 mg capsule 500 mg PO QID 7 days #28 caps 06/04/20 naproxen 500 mg tablet 500 mg PO BID PRN pain #20 tabs 06/04/20 meclizine 12.5 mg tablet 12.5 mg PO TID PRN dizziness #7 06/21/21 tabs cephalexin 500 mg capsule 500 mg PO QID 7 days #28 caps 08/18/22 doxycycline hyclate 100 mg capsule 100 mg PO BID 7 days #14 caps 08/18/22 naproxen 500 mg tablet 500 mg PO BID PRN pain 7 days #14 08/18/22 tabs Allergies Allergy/AdvReac Type Severity Reaction Status Date / Time No Known Allergies Allergy Verified 08/18/22 17:52 Review of Systems Review of Systems: Lump on the right arm Yes all other systems are reviewed and are negative PMFSH Past Medical History Medical History Fibromyalgia Social History Social History Alcohol intake: never Advance Directives: No Advance Directives Information Provided: No Physical Exam ED Vital Signs: Vital Signs - 24 hr 08/18/22 17:52 Temperature 97.3 F Pulse Rate 99 Respiratory Rate 18 Blood Pressure 125/84 Pulse Oximetry 97 Oxygen Delivery Method Room Air BMI result Body Mass Index 31.1 Const General: cooperative, healthy appearing, comfortable, no acute distress, well developed, alert, awake and Physically active Orientation/consciousness: oriented to person, oriented to place, oriented to time and patient oriented x3 HENMT Head: Yes normal to inspection, Yes No palpable skull fracture present, Yes normocephalic, Yes atraumatic and No abrasion Eyes General: appearance normal, both eyes and all related structures Neck Neck: Yes normal visual inspection, Yes full ROM, Yes no lymphadenopathy, Yes no meningeal signs, Yes trachea midline, Yes supple, No anterior neck swelling and No tender Chest Chest palpation & inspection: normal inspection of the chest and normal palpation of entire chest wall Chest/axillae images: 1. Small area of redness/tenderness without any fluctuance. Hard mass. No pus drainage Resp Effort & Inspection: normal respiratory effort and able to speak in complete sentences Auscultation: clear to auscultation bilaterally Cardio Jugular venous distension: no JVD Heart sounds: S1 normal heart sound present and S2 normal heart sound present GI Inspection: Yes normal to inspection and No abdominal wall ecchymosis Palpation (GI): Soft to palpation, not firm, nontender, no guarding and not rigid General: No CVA tenderness and Yes no CVA tenderness Back/Spine/Pelvis Back: no CVA tenderness, No CVA tenderness, No mass and No back tenderness Skin General skin exam: no rashes or lesions noted and elasticity normal Neuro General: oriented to person, oriented to place, oriented to time, patient oriented x3, gait normal, tone normal, moves all extremities, Normal light touch and pain sensation, no meningeal signs, no focal motor deficits, CN's II-XI intact bilaterally and normal sensation to monofilament Extrem General: Yes normal to inspection and Yes full ROM Psych Appearance: grossly normal, well kempt and not disheveled Course Reevaluation(s) Reevaluation #1: 47 minutes female with early abscess versus hidradenitis suppurative were. No indication for incision and drainage. Time: 19:34 Medical Decision Making Medical Decision Making MDM Narrative: 47-year-old female presents to ED for lump under right armpit after shaving. Patient states this has happened before in the past. Negative for any other complaints. Physical exam shows early abscess versus hidradenitis super tip bur. Nonfluctuant no indication for incision and drainage. Rest of upper extremity normal negative for signs of DVT, neck fasciitis, osteomyelitis. Negative for signs of fracture. Discharge with antibiotics. Differential Diagnosis Differential Diagnoses: The differential diagnosis associated with the presentation includes (Abscess, cellulitis, hidradenitis) Prescription Management I considered prescription management with: Pain Medication and Antibiotic Discharge Plan Discharge Clinical Impression: Abscess of skin or subcutaneous tissue, Hidradenitis suppurativa of right axilla Patient Disposition: Home, Self-Care Instructions: Abscess (ED), Hidradenitis Suppurativa (ED), Warm Compress or Soak (ED) Additional Instructions: Presently no indication for incision and drainage. Area nonfluctuant. Recommend taking antibiotics and warm compresses 4 times a day for 15 minutes. Please follow-up with surgeon. Return to the ED for increased swelling, pus drainage, foul odor, swelling of upper extremity, red streaks, fever, chills, chest pain, shortness of breath, or any other concerning symptoms. Prescriptions: New cephalexin 500 mg capsule 500 mg PO QID 7 Days Qty: 28 0RF doxycycline hyclate 100 mg capsule 100 mg PO BID 7 Days Qty: 14 0RF naproxen 500 mg tablet 500 mg PO BID PRN (Reason: pain) 7 Days Qty: 14 0RF No Action cephalexin 500 mg capsule 500 mg PO QID 7 Days Qty: 28 0RF naproxen 500 mg tablet 500 mg PO BID PRN (Reason: pain) Qty: 20 0RF meclizine 12.5 mg tablet 12.5 mg PO TID PRN (Reason: dizziness) Qty: 7 0RF Referrals: [facility] [place] General Surgeons [Provider Group] (Right axilla abscess versus hidradenitis) Stand Alone Forms: Work/School Release Interventions: ED Discharge Assessment Last Done: 08/18/22 19:45 Discharge Date/Time: 08/18/22 19:46 Print Language: Maori
== END 2022-08-18 19:46 | disposition home or self-care (01) ==
PROVIDERS: Emergency Provider Emergency Medicine; PCP Nurse Practitioner Family
DX: L02.411 Cutaneous abscess of right axilla (principal); L73.2 Hidradenitis suppurativa
CPT/HCPCS: 99282; 99283

== ENCOUNTER 2022-08-21 15:17 | Outpatient (REF) | payer OTHER, SELFPAY | END 2022-08-21 15:18 | disposition home or self-care (01) | LOC: HO.LNP 15:17 | PROVIDERS: PCP Nurse Practitioner Family; Visit Provider Surgery | DX: L02.91 Cutaneous abscess, unspecified (principal) | CPT/HCPCS: 10060; 10061; 87070; 87077; 87186; 87205; 99202 ==

== ENCOUNTER → 2022-08-22 15:22 | Outpatient (BNVA) | payer OTHER, SELFPAY | PROVIDERS: PCP Nurse Practitioner Family; Visit Provider Surgery | DX: Z48.1 Encounter for planned postprocedural wound closure (principal); Z87.2 Personal history of diseases of the skin and subcutaneous tissue | CPT/HCPCS: 99211 ==

== ENCOUNTER → 2022-08-23 15:11 | Outpatient (BNVA) | payer OTHER, SELFPAY | PROVIDERS: PCP Nurse Practitioner Family; Visit Provider Surgery | DX: Z48.00 Encounter for change or removal of nonsurgical wound dressing (principal) | CPT/HCPCS: 99211 ==

== ENCOUNTER 2022-10-26 19:53 | Emergency (ER) | payer OTHER, SELFPAY ==
--- NOTE | ~2022-10-26 | XR_ITS ---
EXAMINATION: XR CHEST CLINICAL INFORMATION: Cough COMPARISON: Chest x-ray 06/21/2021 TECHNIQUE: Frontal view of the chest was obtained. FINDINGS: No significant abnormality is noted involving the heart, lungs, mediastinum, bony thorax or soft tissues. XR/XR chest 1V IMPRESSION: Unremarkable examination.
[2022-10-26 19:55] VITALS: BP 132/100; PULSE 114; RESP 18; TEMP 36.1; O2SAT 97; BMI 34.7
--- NOTE | 2022-10-26 19:56 | ED.GENADULT ---
HPI - General Adult General Chief complaint: Upper Respiratory Symptoms Stated complaint: cough / bad congestion / earache Time Seen by Provider: 10/26/22 21:05 Source: patient Mode of arrival: ambulatory Limitations: no limitations History of Present Illness HPI narrative: Patient is a 47-year-old female who presents emergency department for evaluation of 2 weeks of productive cough, fatigue, myalgias, subjective fever and chills. She has chest discomfort experienced only with cough and deep inspiration. Denies known sick contacts. She was seen at her primary care office 1 week ago and given prescription for loratadine, acetaminophen, which have not helped her symptoms she has also been taking DayQuil without significant improvement. She states that she had COVID-19 testing at that time which was negative. Related Data Previous Rx's Medication Instructions Recorded cephalexin 500 mg capsule 500 mg PO QID 7 days #28 caps 06/04/20 naproxen 500 mg tablet 500 mg PO BID PRN pain #20 tabs 06/04/20 meclizine 12.5 mg tablet 12.5 mg PO TID PRN dizziness #7 06/21/21 tabs cephalexin 500 mg capsule 500 mg PO QID 7 days #28 caps 08/18/22 doxycycline hyclate 100 mg capsule 100 mg PO BID 7 days #14 caps 08/18/22 naproxen 500 mg tablet 500 mg PO BID PRN pain 7 days #14 08/18/22 tabs hydrocodone 5 mg-acetaminophen 325 1 tab PO Q4-6H PRN pain #30 tabs 08/21/22 mg tablet ondansetron HCl 4 mg tablet 4 mg PO Q8H PRN nausea and 08/21/22 vomiting #10 tabs azithromycin 250 mg tablet See Rx Instructions PO .COMPLEX #6 10/26/22 tabs prednisone 20 mg tablet 40 mg PO DAILY 5 days #10 tabs 10/26/22 Allergies Allergy/AdvReac Type Severity Reaction Status Date / Time No Known Allergies Allergy Verified 08/21/22 15:21 Review of Systems Review of Systems: Constitutional: Positive subject fever. Positive chills. No weakness. Positive fatigue. ENT/ Mouth: No Ear Pain, positive Nasal Congestion, positive sore throat, No Rhinorrhea, No Swallowing Difficulty Skin: No rash or itching. Cardiovascular: No chest pain. No palpitations. Respiratory: No shortness of breath. Positive cough. No sputum production. Gastrointestinal: No nausea. No vomiting. No diarrhea. No abdominal pain. Genitourinary: No burning micturition. No urinary frequency. Neurologic: No headache. No dizziness. No syncope. No numbness or tingling in the extremities. Musculoskeletal: Positive myalgias. No back pain. No joint pain or stiffness. Yes all other systems are reviewed and are negative PMFSH Past Medical History Attestation statement: The following information was validated with the patient. Source: old records reviewed Medical History Acute depression Borderline personality disorder Fibromyalgia PTSD (post-traumatic stress disorder) Scoliosis Family History Family History (Updated 08/21/22 @ 15:26 by ISABELLA Farah) Father Diabetes HTN (hypertension) Prostate cancer Mother Fibromyalgia Anxiety Depression Social History Social History (Updated 08/21/22 @ 15:26 by ISABELLA Faarh) Alcohol intake: current Alcohol intake frequency: holidays/special occasions only Patient Tobacco Use Status: Current everyday Tobacco user Cigarettes Per Day: 3 Advance Directives: No Advance Directives Information Provided: No Physical Exam ED Vital Signs: Vital Signs - 24 hr 10/26/22 19:55 Temperature 97 F Pulse Rate 114 H Respiratory Rate 18 Blood Pressure 132/100 H Pulse Oximetry 97 Oxygen Delivery Method Room Air BMI result Body Mass Index 34.7 Appearance: Alert.?Oriented to person, place and time. No acute distress.?Normal affect. Head: Normocephalic, atraumatic. No head, sinus or TMJ tenderness.? Eyes: Sclera white, conjunctiva pink. PERRL, Ears: Bilateral ear canals clear, TM visible with good cone of light.? Nose: Nasal mucosa pink and moist with midline septum, nares patent bilaterally.? Mouth/ Throat: Oral mucosa pink and moist without lesions. Pharynx without exudate, tonsils symmetric, no adenopathy.? Neck: Normal inspection.? Neck supple.?? CVS: Heart sounds normal. Normal heart rate and rhythm.? Pulses normal.?? Respiratory: No respiratory distress.? Lung sounds clear to auscultation bilaterally?? Abdomen: Soft and non-tender. Skin: Skin warm and dry.? Normal skin color.? ? Extremities: No lower extremity edema.? No calf ttp? Neuro: Moves all extremities spontaneously. Sensation intact bilaterally. No focal neuro deficits. Ambulates with normal steady gait. Course Course Course Narrative: This is an RME: Additional HPI, ROS, PE not included below will be deferred to primary provider. 47 year old female w/o pmhx presents w/ congestion, fatigue, malaise, productive cough, myalgias, subjective fevers and chills X2 weeks. No known sick contacts. Reports chest pressure w/ cough and sob however only w/ cough. Using vics Medical Decision Making Medical Decision Making MDM Narrative: Patient is a 47-year-old female with no reported past medical history, presenting for evaluation of upper respiratory symptoms. COVID-19 testing negative. Influenza testing negative. At this time history and physical exam not consistent with ACS/PE/pneumonia, chest x-ray does not show evidence of pneumonia or pneumothorax. Well-appearing, nontoxic, afebrile, tachypnea/hypoxia. She was mildly tachycardic upon arrival to the emergency department, she had taken multiple inhalations of her friend's albuterol inhaler in hopes that this would improve her cough, suspect tachycardia is likely secondary to albuterol. Speaking clear full sentences, ambulatory with steady gait. Discussed conservative treatment including rest, hydration, Tylenol/ibuprofen as needed for fever and body aches, saline nasal spray, humidifier, [id number] cold medication, if additionally sent a prescription for azithromycin and prednisone for management of bronchitis. Advised to follow-up with primary care provider as needed, discussed reasons to return back to the emergency department. All questions were answered. Patient discharged home in stable condition. Differential Diagnosis Differential Diagnoses: The differential diagnosis associated with the presentation includes (As noted above) Lab Data [facility] Lab Attestation statement: I reviewed the patient's lab results. (As noted in MDM narrative) Labs: Lab Results 10/26/22 10/26/22 Range/Units 20:29 20:29 COVID-19 ([facility]) Negative (Negative) COVID-19 Clin Com See Note Influenza Type A (DIEUDONNE) Negative (Negative) Influenza Type B (DIEUDONNE) Negative (Negative) Influenza A & B Note See Note Independent Interpretation I performed an independent interpretation of an: Plain X-Ray (I personally interpreted chest x-ray and agree with radiologist impression) Radiology Impression Discussion of test interpretation with radiology: I have reviewed the radiologist's reading. Radiologist Impression: XR/XR chest 1V IMPRESSION: Unremarkable examination. Prescription Management I considered prescription management with: Antibiotic and Other (Prednisone) Discharge Plan Discharge Clinical Impression: Bronchitis Patient Disposition: Home, Self-Care Instructions: Acute Bronchitis (ED) Additional Instructions: As discussed, your symptoms are most consistent with that bronchitis. Your chest x-ray today did not show any evidence of pneumonia. Your COVID in flu testing were both negative. I have sent a prescription to the pharmacy for azithromycin, please complete this entire course of antibiotic. I have also sent the prescription for prednisone to the pharmacy, please be sure to take this with food to prevent any stomach upset. Additionally, as discussed the cough associated with bronchitis can last up to 6 weeks. Please follow-up with your primary care provider for persistent symptoms. Return back to the emergency department with any new or worsening symptoms or concerns. Prescriptions: New azithromycin 250 mg tablet See Rx Instructions .ROUTE .COMPLEX Qty: 6 0RF Rx Instructions: For 250 mg dose pack: take 500 mg today (day 1), then 250 mg for 4 days (days 2-5) prednisone 20 mg tablet 40 mg PO DAILY 5 Days Qty: 10 0RF No Action cephalexin 500 mg capsule 500 mg PO QID 7 Days Qty: 28 0RF naproxen 500 mg tablet 500 mg PO BID PRN (Reason: pain) Qty: 20 0RF meclizine 12.5 mg tablet 12.5 mg PO TID PRN (Reason: dizziness) Qty: 7 0RF cephalexin 500 mg capsule 500 mg PO QID 7 Days Qty: 28 0RF doxycycline hyclate 100 mg capsule 100 mg PO BID 7 Days Qty: 14 0RF naproxen 500 mg tablet 500 mg PO BID PRN (Reason: pain) 7 Days Qty: 14 0RF hydrocodone-acetaminophen 5-325 mg tablet 1 tab PO Q4-6H PRN (Reason: pain) Qty: 30 0RF Rx Instructions: Partial Fill upon patient request. ondansetron HCl 4 mg tablet 4 mg PO Q8H PRN (Reason: nausea and vomiting) Qty: 10 0RF Referrals: Gin Cole NP [Primary Care Provider] -
[2022-10-26 20:53] LABS: COVID-19 Test Negative (Negative); IDNOW Serial# 08D9AD1C; IDNOW Serial# BCCEAD1C; Influenza A Negative (Negative); Influenza B2 Negative (Negative)
[2022-10-26 22:32] VITALS: BP 120/83; PULSE 101; RESP 20; TEMP 36.5; O2SAT 98
== END 2022-10-26 22:40 | disposition home or self-care (01) ==
PROVIDERS: Physician Assistant; Emergency Provider Student in an Organized Health Care Education/Training Program; PCP Nurse Practitioner Family
DX: J40 Bronchitis, not specified as acute or chronic (principal); Z20.822 Contact with and (suspected) exposure to COVID-19; F43.10 Post-traumatic stress disorder, unspecified; F17.210 Nicotine dependence, cigarettes, uncomplicated
CPT/HCPCS: 71045; 87502; 87635; 99282; 99283

== ENCOUNTER 2023-03-11 21:41 | Emergency (ER) | payer OTHER, SELFPAY ==
--- NOTE | ~2023-03-11 | XR_ITS ---
EXAMINATION: XR ANKLE, LEFT CLINICAL INFORMATION: Ankle pain without injury COMPARISON: None available. TECHNIQUE: AP, lateral, and mortise views of the left ankle. FINDINGS: No fracture. Alignment is anatomic. No erosions. Joint spaces are maintained. Soft tissues are normal. Enthesopathy present at the Achilles insertion on the calcaneus. XR/XR ankle LT min 3V IMPRESSION: No evidence of an acute osseous abnormality.
[2023-03-11 21:56] VITALS: BP 121/82; PULSE 105; RESP 18; TEMP 36.8; O2SAT 97
[2023-03-11 22:29] LABS: Appearance Urine Clear; Color Urine Yellow; Glucose Urine UA Negative (Negative); Leukocyte Esterase Urine Negative (Negative); Nitrite Urine Negative (Negative); PH 6.5 (5.0-9.0); Specific Gravity - Urine 1.015 (1.005-1.025); UMIC TRIGGER UACC YES; Urine Blood Trace (Negative); Urine Ketones Negative (Negative); Urine Protein Negative (Neg-Trace)
[2023-03-11 22:34] LABS: Bacteria Urine None Seen (None Seen); Hyaline Casts Urine 0-2 /LPF (0-2); Squamous Epithelial Cell Urine 0-2 /HPF (0-2); WBC Urine 0-5 /HPF (0-5)
[2023-03-11 22:39] LABS: UPreg QC Valid YES; Urine Pregnancy NEGATIVE (NEGATIVE)
[2023-03-11 22:46] LABS: IDNOW Serial# 08D9AD1C; Strep A Nucleic Acid Negative (Negative)
[2023-03-11 22:51] LABS: COVID-19 Test Negative (Negative); IDNOW Serial# 9DB6401D
[2023-03-11 22:52] LABS: IDNOW Serial# BCCEAD1C; Influenza A Negative (Negative); Influenza B2 Negative (Negative)
[2023-03-11] MEDS: Ketorolac Tromethamine 30 MG/ML VIAL IM (22:56)
--- NOTE | 2023-03-11 23:37 | ED_ITS ---
HPI - General Adult General Chief complaint: General Medical Stated complaint: leg pain, migraine, body pain Time Seen by Provider: 03/11/23 22:23 Source: patient Mode of arrival: ambulatory Limitations: no limitations History of Present Illness HPI narrative: 47-year-old female presents to the ED for left ankle pain, headache chronic back pain due to fibromyalgia, and sore throat. Patient states no fever, abdominal pain,chills, dysuria, hematuria, flank pain, nausea or vomiting. Patient denies any recent trauma. Patient states she has fibromyalgia and migraine. She states no recent long travel, recent surgery, calf pain, chest pain, shortness of breath. Patient states no urinary or bowel incontinence. Patient denies IV drug use or pmh HIV/HEpC Related Data Previous Rx's Medication Instructions Recorded cephalexin 500 mg capsule 500 mg PO QID 7 days #28 caps 06/04/20 naproxen 500 mg tablet 500 mg PO BID PRN pain #20 tabs 06/04/20 meclizine 12.5 mg tablet 12.5 mg PO TID PRN dizziness #7 06/21/21 tabs cephalexin 500 mg capsule 500 mg PO QID 7 days #28 caps 08/18/22 doxycycline hyclate 100 mg capsule 100 mg PO BID 7 days #14 caps 08/18/22 naproxen 500 mg tablet 500 mg PO BID PRN pain 7 days #14 08/18/22 tabs hydrocodone 5 mg-acetaminophen 325 1 tab PO Q4-6H PRN pain #30 tabs 08/21/22 mg tablet ondansetron HCl 4 mg tablet 4 mg PO Q8H PRN nausea and 08/21/22 vomiting #10 tabs azithromycin 250 mg tablet See Rx Instructions PO .COMPLEX #6 10/26/22 tabs prednisone 20 mg tablet 40 mg (2 x 20 mg) PO DAILY 5 days 10/26/22 #10 tabs ketorolac 10 mg tablet 10 mg PO Q6H PRN pain 5 days #20 03/11/23 tabs Allergies Allergy/AdvReac Type Severity Reaction Status Date / Time No Known Allergies Allergy Verified 08/21/22 15:21 Review of Systems 2 Review of Systems: left ankle pain, sore throat, photophobia Yes all other systems are reviewed and are negative PMFSH Past Medical History Medical History Acute depression Borderline personality disorder Fibromyalgia PTSD (post-traumatic stress disorder) Scoliosis Family History Family History (Updated 08/21/22 @ 15:26 by ISABELLA Farah) Father Diabetes HTN (hypertension) Prostate cancer Mother Fibromyalgia Anxiety Depression Social History Social History (Updated 08/21/22 @ 15:26 by ISABELLA Farah) Alcohol intake: current Alcohol intake frequency: holidays/special occasions only Patient Tobacco Use Status: Current everyday Tobacco user Cigarettes Per Day: 3 Advance Directives: No Advance Directives Information Provided: No Physical Exam ED Vital Signs: Vital Signs - 24 hr 03/11/23 21:56 Temperature 98.3 F Pulse Rate 105 H Respiratory Rate 18 Blood Pressure 121/82 Pulse Oximetry 97 Oxygen Delivery Method Room Air BMI result Body Mass Index 30.0 Const General: cooperative, healthy appearing, comfortable, no acute distress, well developed, alert, awake and Physically active Orientation/consciousness: oriented to person, oriented to place, oriented to time and patient oriented x3 HENMT Head: Yes normal to inspection, Yes No palpable skull fracture present, Yes normocephalic and Yes atraumatic Throat: Yes posterior oropharynx normal, Yes tonsils normal and Yes uvula midline Eyes General: appearance normal, both eyes and all related structures Neck Neck: Yes normal visual inspection, Yes full ROM, Yes no lymphadenopathy, Yes no meningeal signs, Yes trachea midline, Yes supple, No anterior neck swelling and No tender Chest Chest palpation & inspection: normal inspection of the chest and normal palpation of entire chest wall Resp Effort & Inspection: normal respiratory effort and able to speak in complete sentences Auscultation: clear to auscultation bilaterally Cardio Jugular venous distension: no JVD Heart sounds: S1 normal heart sound present and S2 normal heart sound present GI Inspection: Yes normal to inspection and No abdominal wall ecchymosis Palpation (GI): Soft to palpation, not firm, nontender, no guarding and not rigid General: Yes no CVA tenderness Back/Spine/Pelvis Back: no CVA tenderness and No back tenderness Skin General skin exam: no rashes or lesions noted, elasticity normal and turgor normal Neuro General: oriented to person, oriented to place, oriented to time, patient oriented x3, gait normal, tone normal, moves all extremities, Normal light touch and pain sensation, no meningeal signs, no focal motor deficits, CN's II-XI intact bilaterally and normal sensation to monofilament Extrem General: Yes normal to inspection and Yes full ROM Ankle/foot/toe images: 2 1. Tenderness on palpation. Negative for crepitus, deformity, erythema, swelling, hardness, coolness. motor/ neuro/vascular exam intact Psych Appearance: grossly normal, well kempt and not disheveled Medications Administered Discontinued Medications Generic Name Dose Route Start Last Admin Trade Name Maryellen PRN Reason Stop Dose Admin Ketorolac Tromethamine 30 mg 03/11/23 22:44 03/11/23 22:56 Ketorolac Tromethamine 30 Mg/Ml Vial IM 03/11/23 22:45 30 mg ONCE ONE Administration Medical Decision Making Medical Decision Making [facility] Narrative: 47-year-old female a history fibromyalgia presents to ED for left ankle chronic pain, chronic back pain, and sore throat. patient denies any urinary/ bowel incontinence, nausea, vomiting, flank pain, fever, or chills. Patient states history of migraine. X-ray shows Achilles tendinitis. Swabs COVID influenza RSV strep negative. Differential Diagnosis Differential Diagnoses: The differential diagnosis associated with the presentation includes ( Achilles tendinitis, lumbar radiculopathy, fibromyalgia, pharyngitis, COVID, influenza) Admission/Observation Consideration of admission/observation: Escalation of care including admission/observation considered Lab Data [facility] Lab Attestation statement: I reviewed the patient's lab results. Labs: Lab Results 03/11/23 03/11/23 Range/Units 22:22 22:30 Urine Color Yellow Urine Appearance Clear Urine pH 6.5 (5.0-9.0) Ur Specific [place] 1.015 (1.005-1.025) Urine Protein Negative (Neg-Trace) mg/dL Urine Glucose (UA) Negative (Negative) mg/dL Urine Ketones Negative (Negative) mg/dL Urine Blood Trace H (Negative) Urine Nitrite Negative (Negative) Ur Leukocyte Esterase Negative (Negative) Urine RBC 3-5 H (0-2) /HPF Urine WBC 0-5 (0-5) /HPF Ur Squamous Epith Cells 0-2 (0-2) /HPF Urine Bacteria None Seen (None Seen) Hyaline Casts 0-2 (0-2) /LPF Urine Test NEGATIVE (NEGATIVE) COVID-19 ([facility]) Negative (Negative) COVID-19 Clin Com See Note Influenza Type A ([facility]NE) Negative (Negative) Influenza Type B ([facility]NE) Negative (Negative) Influenza A & B Note See Note S. pyogenes GrpA [facility]ONNE Negative (Negative) Independent Interpretation I performed an independent interpretation of an: Plain X-Ray Radiology Impression Discussion of test interpretation with radiology: I have reviewed the radiologist's reading. External Record Review External record reviewed: Other (Prior Visits) Prescription Management I considered prescription management with: Pain Medication Discharge Plan Discharge Clinical Impression: Migraine, Fibromyalgia, Achilles tendinitis, left leg, Pharyngitis Patient Disposition: Home, Self-Care Instructions: Pharyngitis (ED), Migraine Headache (ED), Achilles Tendinitis (ED), Fibromyalgia (ED) Additional Instructions: x-ray shows Enthesopathy present at the Achilles insertion on the calcaneus. this may indicate Achilles tendinitis. You need to follow-up with your primary care provider. Return to the ED for any fever, chills, leg swelling, ankle swelling, calf pain, redness, neck stiffness, rash photophobia, slurred speech, facial droop, paralysis of extremities, bluish black discoloration, hotness coldness of extremities, or any other concerning symptoms. Prescriptions: New ketorolac 10 mg tablet 10 mg PO Q6H PRN (Reason: pain) 5 Days Qty: 20 0RF Rx Instructions: received 30mg IM toradol in the ED No Action cephalexin 500 mg capsule 500 mg PO QID 7 Days Qty: 28 0RF naproxen 500 mg tablet 500 mg PO BID PRN (Reason: pain) Qty: 20 0RF meclizine 12.5 mg tablet 12.5 mg PO TID PRN (Reason: dizziness) Qty: 7 0RF cephalexin 500 mg capsule 500 mg PO QID 7 Days Qty: 28 0RF doxycycline hyclate 100 mg capsule 100 mg PO BID 7 Days Qty: 14 0RF naproxen 500 mg tablet 500 mg PO BID PRN (Reason: pain) 7 Days Qty: 14 0RF azithromycin 250 mg tablet See Rx Instructions .ROUTE .COMPLEX Qty: 6 0RF Rx Instructions: For 250 mg dose pack: take 500 mg today (day 1), then 250 mg for 4 days (days 2-5) prednisone 20 mg tablet 40 mg PO DAILY 5 Days Qty: 10 0RF hydrocodone-acetaminophen 5-325 mg tablet 1 tab PO Q4-6H PRN (Reason: pain) Qty: 30 0RF Rx Instructions: Partial Fill upon patient request. ondansetron HCl 4 mg tablet 4 mg PO Q8H PRN (Reason: nausea and vomiting) Qty: 10 0RF Stand Alone Forms: Work/School Release Interventions: ED Discharge Assessment Last Done: 03/12/23 02:28 Discharge Date/Time: 03/12/23 00:25 Print Language: Urdu
== END 2023-03-12 00:25 | disposition home or self-care (01) ==
PROVIDERS: Physician Assistant; Emergency Provider Internal Medicine
DX: M25.572 Pain in left ankle and joints of left foot (principal); R51.9 Headache, unspecified; M54.9 Dorsalgia, unspecified; M79.7 Fibromyalgia; Z11.52 Encounter for screening for COVID-19
CPT/HCPCS: 73610; 81001; 81025; 87502; 87635; 87651; 96372; 99283; 99284; J1885